=== PATIENT | male | born 1950 | race Caucasian/White ===

== ENCOUNTER 2018-11-06 06:27 | Day surgery (SDC) | payer OTHER, SELFPAY ==
[2018-08-31 17:53] VITALS: BMI 25.7
[2018-11-06 07:01] VITALS: BP 137/79; PULSE 55; RESP 16; TEMP 36.7; O2SAT 99; BMI 24.8
[2018-11-06] MEDS: Lactated Ringers 1,000 ML 100 ML IV (07:11)
--- NOTE | 2018-11-06 07:29 | HP.PCM_ITS ---
History of Present Illness Date of Admission: 11/06/18 The patient is a 68 year old M here for screening colonoscopy. Patient reports that his last colonoscopy was 10 to 11 years ago and was normal. He is not having any abdominal pain or blood in stool. He denies any family history of colon cancer. Past Medical/Surgical History - Planned Operation Planned Operative Procedure/s: CSCOPE OPEN ACCESS Date of Operative Procedure: 11/06/18 Permit Signed: No S.O.S: No Is This Patient Having a Total Joint: No - Previous Hospitalizations/Surgeries HX Hospitalizations: No HX of Surgeries: TONSILLECTOMY CHILD. CSCOPE Any Problems With Anesthesia: No You/Your Family Experience Fever (Hyperthermia) With Anes: No Cholinesterase deficiency: No - Cardiovascular Hx Chest Pain within Last 2 months: No Hx of Irregular Heartbeat and/or Afib: No Hx Heart Attack: No Hx Congestive Heart Failure: No Hx Rheumatic Fever: No Hx Hypertension: No Hx Internal Defibrillator: No Hx Pacemaker: No Hx Cardiac Catheterization: No Hx Cardiac Surgery/Stents/Etc.: No Hx Stress Test: No HX Edema: No Hx Pain in Legs when Walking/Leg Cramps: No - Respiratory Chronic Cough: No HX of Shortness of Breath: No Hoarseness: No Hx Chronic Obstructive Pulmonary Disease (COPD): No Hx Asthma: No Hx Emphysema: No Hx Sleep Apnea: No Hx Oxygen Use at Home: No Hx Respiratory Tract Infection/Cold (presently): No Do You Snore Loudly (louder than talking or can be heard): Yes Do You Often Feel Tired/ Fatigued/ Sleepy Dring Daytime?: No Has Anyone Observed You Stop Breathing During Sleep?: No Result (for STOP score): Negative Hx Smoking: No Smoking Status: Never smoker - Gastrointestinal Hx Gastroesophageal Reflux: No Hx Gastrointestinal Disorders: No Hx Gastrointestinal Bleed: No Hx Ulcer: No Hx Hiatal Hernia: No Difficulty Chewing/Swallowing: No Recent Onset of Swallowing Problems: No Special diet followed at home: No Hx Unplanned Weight Loss of 20#: No HX Unplanned Weight Gain of 20#: No - Neurological Hx Seizures: No HX Syncope/Blackout Spells/Unconsciousness: No Hx CVA/Stroke: No Hx Transient Ischemic Attacks (TIA): No Hx Multiple Sclerosis: No Hx Parkinson's Disease: No Hx Head/Neck Injury: No Hx Headaches: No Hx Back Injury/Pain: No Recent Onset of Speech Difficulty: No Restless Legs: No Does patient have nerve stimulator: No Patient instructed to have device shut off: No Rep notified?: No - Blood Disorder Hx Leukemia: No Bleeding Tendencies: No Hx Deep Vein Thrombosis: No Hx High Cholesterol: Yes - HAD BEEN ON MED Hx Hepatitis: No Hx Cirrhosis: No Hx Anemia: No Hx Blood Disorders: No - Genitourinary Hx Renal Disease: No - Musculoskeletal Hx Arthritis: No Hx Rheumatoid Arthritis: No Hx Gout: No Recent Onset of an Orthopedic Problem: No - Endocrine Hx Diabetes: No Thyroid Disease: No Hx Steroid Therapy: No - Psycho/Social Hx Substance Use: No Hx Alcohol Use: Yes - OCC Hx Anxiety: No Hx Depression: No Mental Illness: No Hx Dementia: No - Miscellaneous Hx Cancer: No Recent Exposure to Contagious Disease: No Active MRSA: No Hx of C-Diff: No Any Loose Teeth: No Allergies No Known Allergies Allergy (Unverified 11/06/18 07:01) - Discharge Is Pt Admitted From a Senior Care, or a Long Term: No Who Could Help: FAMILY After D/C, Where Do you Plan to Go: Return Home - From the PAT History Number of Risk Factors: 1 - Physical Exam General: Alert, Oriented x3 Neck: No JVD Lungs: Normal air movement Cardiovascular: Regular rate, Regular Rhythm Abdomen: Soft, Non Tender, Non-Distended Extremities: No clubbing Skin: No rashes Vital Signs Temp Pulse Resp BP Pulse Ox 98.0 F 55 L 16 137/79 H 99 11/06/18 07:01 11/06/18 07:01 11/06/18 07:01 11/06/18 07:01 11/06/18 07:01 Oxygen Delivery Method Room Air Weight: 178 lb 2.136 oz Body Mass Index (BMI) 24.8 Assessment/Plan All Active Problems (Last Reviewed 08/31/18 @ 17:41 by Siri Wang) Abrasion, ankle without infection (Acute) Sinusitis, acute (Acute) Bronchitis (Acute) 68-year-old male for screening colonoscopy I explained endoscopy in detail to the patient. I explained the risks including but not limited to stroke or heart attack with anesthesia, perforation of the GI tract, bleeding, infection. I explained that any of these could necessitate further emergency surgery. The patient understands and all questions were answered sufficiently. The patient wishes to proceed with procedure. Dixon Velasquez MD Pager: [facility] [address] [place] [address] [address] [place] [address] Office: Surgery Risks - Colonoscopy Risks Include but are not Limited To: Risks include but are not limited to: Bleeding, perforation requiring further surgery, inability to complete colonoscopy requiring barium enema.
[2018-11-06 07:56] VITALS: BP 137/79; BP 86/50; PULSE 59; RESP 16; TEMP 36.6; O2SAT 96
--- NOTE | 2018-11-06 07:56 | OP.ENDO_ITS ---
11/06/2018 Derik Ramirez [address] [place] [address] Re : Colonoscopy procedure for [place] Dear Dr. Ramirez This procedure was performed on Tuesday, November 06, 2018. My impressions and recommendations are as follows: Impressions : - Diverticulosis in the sigmoid colon. - The examination was otherwise normal on direct and retroflexion views. - No specimens collected. Recommendations : - Discharge patient to home. - Resume previous diet. - Continue present medications. - Repeat colonoscopy in 10 years for screening purposes. My findings are described in the full procedure note, which is enclosed. If I can be of further assistance, please feel free to contact me at Doctor phone number(s): , Work: . Sincerely, Dixon Velasquez MD 11/06/2018 7:56:00 AM This report has been signed electronically.
[2018-11-06 08:00] VITALS: BP 137/79; BP 86/54; PULSE 59; RESP 16; O2SAT 97
[2018-11-06 08:05] VITALS: BP 137/79; BP 94/68; PULSE 64; RESP 16; O2SAT 99
[2018-11-06 08:09] VITALS: BP 114/69; BP 137/79; PULSE 63; RESP 16; TEMP 36.4; O2SAT 100
[2018-11-06 08:15] VITALS: BP 137/79
== END 2018-11-06 08:48 | disposition home or self-care (01) ==
LOC: EN 06:29 → AC 06:29
PROVIDERS: Family Provider Family Medicine; PCP Family Medicine; Referring Provider Family Medicine; Visit Provider Surgery
PROC: 0DJD8ZZ Inspection of Lower Intestinal Tract, Via Natural or Artificial Opening Endoscopic (ICD-10-PCS; CPT 45378; principal; 2018-11-06 07:25)
DX: Z12.11 Encounter for screening for malignant neoplasm of colon (principal); K57.30 Diverticulosis of large intestine without perforation or abscess without bleeding; E78.00 Pure hypercholesterolemia, unspecified
CPT/HCPCS: 45378; J7120

== ENCOUNTER → 2019-09-23 12:30 | Outpatient (CLI) | payer OTHER, SELFPAY ==
[2019-09-23 15:07] LABS: Hematocrit 48.8 % (40-54); Hemoglobin 15.8 g/dL (13.0-16.5); Mean Corp Hgb Conc 32.4 g/dL (32-36); Mean Corpuscular Hgb 30.8 pg (27.0-32.0); Mean Corpuscular Volume 95.1 fL (80-94); Mean Platelet Vol. 10.3 fl (6.2-12.0); Platelet Count 211 K/mm3 (150-450); RBC Distribution Width CV 13.2 % (11.6-14.6); RBC Distribution Width SD 46.7 fl (35.1-43.9); Red Blood Count 5.13 M/mm3 (4.6-6.2); White Blood Count 5.7 K/mm3 (4.4-11.0)
[2019-09-23 15:12] LABS: BNP,B-Type NATRIURETIC PEPTIDE 24.8 pg/mL (0-100)
[2019-09-23 15:32] LABS: Anion Gap 6 (5-15); BUN 25 mg/dL (7-18); BUN/Creat Ratio 30.5 RATIO (10-20); Calcium,Total 8.7 mg/dL (8.5-10.1); Chloride 104 mmol/L (98-107); Creatinine, Serum 0.82 mg/dL (0.70-1.30); EST Glomerular Filtration Rate 99 mL/min (>60); Est Glom Filt Rate - Afr Amer 120 mL/min (>60); Glucose 77 mg/dL (74-106); Potassium 3.7 mmol/L (3.5-5.1); Sodium Level 138 mmol/L (136-145); Thyroid Stim Hormone (TSH) 3.05 uIU/mL (0.358-3.74)
== END ==
PROVIDERS: PCP Family Medicine; Referring Provider Family Medicine; Visit Provider Family Medicine
DX: R07.9 Chest pain, unspecified (principal)
CPT/HCPCS: 36415; 80048; 83880; 84443; 85027

== ENCOUNTER 2019-09-27 13:12 | Inpatient (IN) | payer OTHER, SELFPAY ==
[2019-09-27] VITALS (18 sets, daily range): BP systolic 112–175; BP diastolic 88–121; PULSE 57–105; RESP 14–28; TEMP 35.8–37.1; O2SAT 90–98; BMI 23.8; BMI 23.3
--- NOTE | 2019-09-27 13:16 | EKG12_ITS ---
Test Reason : Blood Pressure : / mmHG Vent. Rate : 111 BPM Atrial Rate : 111 BPM P-R Int : 156 ms QRS Dur : 084 ms QT Int : 304 ms P-R-T Axes : 075 058 081 degrees QTc Int : 413 ms Sinus tachycardia Possible Left atrial enlargement Low voltage QRS Septal infarct , age undetermined Marked ST abnormality, possible inferior subendocardial injury Abnormal ECG Confirmed by SHERRELL WATERS, MAEVE ([id number]), acquisitions editor AGATHA SKY ([id number]) on 09/30/2019 9:46:51 AM Referred By: MIGUEL Confirmed By:MAEVE WYNNE MD
--- NOTE | 2019-09-27 13:31 | EKG12_ITS ---
Test Reason : Blood Pressure : / mmHG Vent. Rate : 101 BPM Atrial Rate : 101 BPM P-R Int : 148 ms QRS Dur : 076 ms QT Int : 352 ms P-R-T Axes : 074 032 077 degrees QTc Int : 456 ms Sinus tachycardia Possible Left atrial enlargement Low voltage QRS Septal infarct , age undetermined ST-Segment Abnormality; Possible Inferior Subendocardial Injury Abnormal ECG Confirmed by HARDIK WATERS, MONIQUE ([id number]), department editor ARNULFO WAGNER ([id number]) on 09/29/2019 1:12:00 PM Referred By: ANN MARIE Confirmed By:MONIQUE DYE MD
--- NOTE | 2019-09-27 13:31 | RAD_ITS ---
STUDY: X-RAY CHEST REASON FOR EXAM: Male, 69 years old. CHEST PAIN MID CHEST, NO PRIOR HX CHEST COMPAINTS TECHNIQUE: Single AP portable view of the chest. COMPARISON: None. FINDINGS: EKG electrodes are seen. Hyperinflation. Mild increased interstitial markings at the lung bases. This may represent a mild degree of interstitial edema with vascular congestion. There is no demonstrated pleural abnormality. Normal size heart. Normal mediastinum and remi. Normal visualized pulmonary arteries. Normal visualized aortic arch and descending thoracic aorta. There are diffuse degenerative changes of the visualized thoracic spine. Dextroscoliosis. Normal visualized ribs, clavicles, and shoulders. There is no demonstrated abnormality of the visualized soft tissue structures of the upper abdomen. RAD/Chest 1 View (Portable) IMPRESSION: Hyperinflation. Mild increased interstitial markings at the lung bases superimposed on mild vascular congestion suggestive of mild CHF. Electronically Signed: Ever Ervin, at 14:06 EDT , Service support ,
--- NOTE | 2019-09-27 13:33 | ED.DCSUM_ITS ---
History of Present Illness Chief Complaint: Chest Pain Narrative: 69-year-old male with no significant past medical history presents with concern for chest pain. States that it began 2 weeks ago. Was retrosternal and nonradiating on exertion. Chest pain-free at rest. Patient has now had constant chest pain since this morning. Describes it as retrosternal and aching. Does admit to some mild shortness of breath. Nausea with vomiting. Mild diaphoresis. No history of DVT or pulmonary embolism. Patient is a cur rent smoker. Past Medical History - Allergies and Home Meds Allergies/Adverse Reactions: Allergies No Known Allergies Allergy (Unverified 11/06/18 07:01) Prior records reviewed: Yes Past Medical History: None Surgical History: no surgical history Lives: Spouse/ Significant Other Smoking Status: Never smoker Review of Systems General: Reports: Sweats. Denies: Chills, Fever Eyes: Denies: Visual changes - bilaterally, Diplopia ENT: Denies: Rhinorrhea, Sore throat Cardiovascular: Reports: Chest pain. Denies: Palpitations Respiratory: Reports: Dyspnea. Denies: Cough, Dyspnea on exertion Gastrointestinal: Reports: Nausea, Vomiting. Denies: Abdominal pain, Diarrhea, Melena, Hematochezia Genitourinary: Denies: Dysuria, Hematuria, Frequency Musculoskeletal: Denies: Back pain, Extremity Pain Skin: Denies: Rash, Wounds Neurological: Denies: Headache, Weakness, Numbness Physical Exam Vital Signs/Narrative: Vital Signs Temp Pulse Resp BP 09/27/19 13:13 98.1 F 104 H 20 H 163/111 H Inital Vital Signs reviewed: Yes General: Well nourished, Well developed, No Acute Distress Head: Normocephalic, Atraumatic Eyes: Perrl, EOMI ENT: Moist mucous membranes, No rhinorrhea Neck: Supple, Nontender Cardiovascular: Regular rate, Regular rhythm, No murmurs Respiratory: No distress, CTA bilaterally, Chest nontender Abdomen: Soft, Nontender, Nondistended, Normal bowel sounds Back: Nontender, Normal Inspection Extremities: Nontender, No edema Skin: Normal color, No rash Neurological: Alert, Oriented x3, Cranial nerves II-XII grossly intact, Normal Strength, Normal Sensation Psychological: Normal affect, Normal Mood Diagnostic/Tx/Re-eval Chest X-Ray - ED: 1 View, Read by ED Physician, - - Vascular congestion. Clinical Impression(s) from Imaging Studies Chest X-Ray 09/27/19 13:31 IMPRESSION: Hyperinflation. Mild increased interstitial markings at the lung bases superimposed on mild vascular congestion suggestive of mild CHF. Electronically Signed: Ever Ervin, at 14:06 EDT , Service support , Laboratory Data 09/27/19 09/27/19 13:20 13:20 WBC 9.9 RBC 5.64 Hgb 17.4 H Hct 52.9 MCV 93.8 MCH 30.9 MCHC 32.9 RDW Std Deviation 44.2 H RDW Coeff of Sean 13.0 Plt Count 238 MPV 10.2 Immature Gran % (Auto) 0.300 Neut % (Auto) 86.5 H Lymph % (Auto) 9.4 L [place] % (Auto) 3.5 Eos % (Auto) 0.0 Baso % (Auto) 0.3 Absolute Neuts (auto) 8.6 H Absolute Lymphs (auto) 0.93 Nucleated RBC % 0 Sodium 137 Potassium 3.6 Chloride 98 Carbon Dioxide 30.0 Anion Gap 9 BUN 17 Creatinine 0.97 Estim Creat Clear Calc 74.21 Est GFR (MDRD) Af Amer 99 Est GFR (MDRD) Non-Af 82 BUN/Creatinine Ratio 17.5 Glucose 154 H Calcium 9.0 Troponin I 0.938 H* - Rhythm Strip Rhythm Strip: Sinus Tach Rate: 111 Ectopy: None - EKG Initial EKG Interpretation: Sinus Tachycardia - EKG done at 1316: Sinus tachycardia at [address] depression with slight elevation in V1 and V2. No criteria for STEMI at this time. Concern for ischemia. Change from previous on 05/03/2009. Follow-up EKG Interpretation: Sinus Tachycardia - EKG done at 1337: Sinus tachycardia at [address] depression diffusely. Slight elevation in aVL which does not meet criteria for STEMI at this time. - Medical Decision Making Patient appears well and nontoxic. Hypertensive and tachycardic upon arrival. Initial EKG is concerning for ischemia. Given the patient's history consistent with ACS interventional cardiology was consulted. EKG was examined by data report analyst Dr. Fraser who examined the patient at the bedside. Repeat EKG unchanged and not worsened. Patient was ordered aspirin but had already taken full dose at home. Was given nitroglycerin for blood pressure control as well as to control the patient's pain. Dr. Fraser will take patient to cardiac catheterization lab with concern for ACS. Patient agreeable and stable at time of admission to hospitalist. - Critical Care Time Critical care time (excluding procedures): 30-74 minutes, Discussing w/Patient &/or Family/Platform Material Handler Manager, Discussing w/Consultants, Arranging Admission or Transfer, Performing Direct Patient Care at Bedside ED Disposition - Plan for ED Patient: Disposition: Acute Care Hospital [facility] Diagnosis: Acute coronary syndrome, Elevated troponin, Elevated blood pressure reading
[2019-09-27 13:44] LABS: Absolute Lymphocyte Count 0.93 X10^3/uL (0.83-4.51); Absolute Neutrophil Count 8.6 X10^3/uL (2.0-7.7); Basophil# 0.03 X10^3/uL; Basophil% 0.3 % (0-1); Hematocrit 52.9 % (40-54); Hemoglobin 17.4 g/dL (13.0-16.5); Lymphocyte # 0.93 X10^3/ul (4.0); Lymphocyte % 9.4 % (19-41); Mean Corp Hgb Conc 32.9 g/dL (32-36); Mean Corpuscular Hgb 30.9 pg (27.0-32.0); Mean Corpuscular Volume 93.8 fL (80-94); Mean Platelet Vol. 10.2 fl (6.2-12.0); Monocyte# 0.35 X10^3/uL; Monocyte% 3.5 % (0-10); NRBC Flagged by Analyzer 0 % (0-5); Neutrophil # 8.59 X10^3/uL (2.7-7.7); Neutrophil % 86.5 % (47-70); POSITIVE MORPHOLOGY YES; Platelet Count 238 K/mm3 (150-450); RBC Distribution Width SD 44.2 fl (35.1-43.9); Red Blood Count 5.64 M/mm3 (4.6-6.2); White Blood Count 9.9 K/mm3 (4.4-11.0)
[2019-09-27 13:49] LABS: Differential Indicated SCAN CRITERIA MET
[2019-09-27 14:00] LABS: Anion Gap 9 (5-15); BUN 17 mg/dL (7-18); BUN/Creat Ratio 17.5 RATIO (10-20); Chloride 98 mmol/L (98-107); Creatinine, Serum 0.97 mg/dL (0.70-1.30); EST Glomerular Filtration Rate 82 mL/min (>60); Est Glom Filt Rate - Afr Amer 99 mL/min (>60); Estimated Creatinine Clearance 74.21 ml/min; Glucose 154 mg/dL (74-106); Potassium 3.6 mmol/L (3.5-5.1); Sodium Level 137 mmol/L (136-145)
[2019-09-27] MEDS: Nitroglycerin SL (ED/IMG/CATH) 0.4 MG TABLET SUBLINGUAL (14:13)
--- NOTE | 2019-09-27 14:13 | NURSING ---
WARP TYING MACHINE TENDER [facility]
--- NOTE | 2019-09-27 14:19 | HP.PCM_ITS ---
History of Present Illness Date of Admission: 09/27/19 Chief Complaint: chest pain The patient is a 69 year old M with no significant PMH who was admitted via the ED on 09/27/2019 with a complaint of chest pain which had been going on for 2 weeks, and worsened on day before presentation. Chest pain was retrosternal, pressure-like, nonradiating and aggravated by exertion and relieved by rest. He had associated vomiting and mild shortness of breath but denied any increased sweating or palpitations or dizziness. He has not had such symptoms before and denies any cardiac history and family history of cardiac disease. Since pain was getting worse today, he decided to come into the ED. Admission in the ED, vitals were significant for blood pressure of 175/121, but otherwise within normal limits. Chemistry was unremarkable but initial troponin was 0.938. CBC showed hemoglobin of 17.4 with WBC of 9.9 and platelets of 238. EKG showed PVCs but no acute ST changes. Chest x-ray showed hyperinflation with mild increased interstitial markings at the lung bases superimposed on mild vascular congestion suggestive of mild CHF. He has been admitted to be managed for non-STEMI. Cardiology was consulted and reviewed patient in ED and decided that based on his symptoms with elevated troponin, he would be sent for urgent cardiac cath. [] Past Medical History Medical History: Medical History (Last Reviewed 08/31/18 @ 17:41 by Siri Wang) Hyperlipidemia E78.5 Left inguinal hernia K40.90 Allergies No Known Allergies Allergy (Unverified 11/06/18 07:01) Home Medications: Ambulatory Orders Medication Instructions Recorded aspirin 81 mg tablet,delayed 81 mg PO DAILY 05/08/17 release cholecalciferol (vitamin D3) 25 1,000 unit PO DAILY 05/08/17 mcg (1,000 unit) capsule multivitamin 1 tab PO QAM 05/08/17 Surgical History: Surgical History (Last Reviewed 08/31/18 @ 17:41 by Siri Wang) History of colonoscopy Z98.890 History of tonsillectomy and adenoidectomy Z98.890 Surgical History: no surgical history Lives: Spouse/ Significant Other Smoking Status: Never smoker Review of Systems Constitutional: Denies: Chills, Fever, Malaise, Weakness, Weight Change HEENT: Denies: Head Aches, Sinus Congestion, Sinus Drainage Cardiovascular: Reports: Chest Pain, Chest Tightness Respiratory: Denies: Cough, Shortness of Breath, Shortness of breath at rest, Shortness of breath upon exertion, Sputum production Gastrointestinal: Denies: Abdominal Pain, Nausea, Vomiting Genitourinary: Denies: Dysuria Musculoskeletal: Denies: Joint Pain, Joint Tenderness Skin: Denies: Rash, Wounds Neurological: Denies: Numbness, Tingling, Focal weakness Psychiatric: Denies: Anxiety, Depression, Homicidal Ideations, Suicidal Ideations Hematologic/ Lymphatic: Denies: Easy Bruising, Easy Bleeding VTE Information - Inpt Only VTE Present on Admission: No VTE Pharm Prophylaxis ordered?: Yes - Physical Exam Vitals/I&O's: Vital Signs Temp Pulse Resp BP Pulse Ox 98.5 F 100 25 H 175/121 H 97 09/27/19 14:13 09/27/19 14:13 09/27/19 14:13 09/27/19 14:13 09/27/19 14:13 Oxygen Delivery Method Room Air Weight: 166 lb 3.657 oz Body Mass Index (BMI) 23.8 General: Alert, Oriented x3, Cooperative, No apparent distress HEENT: Atraumatic, PERRLA, EOMI, Normocephalic Oral: Moist Mucosa Neck: Supple, No JVD, Negative Carotid Bruits Lungs: Clear to auscultation, Normal air movement, No rhonchi, No wheeze, No rales Cardiovascular: Regular rate, Regular Rhythm, Normal S1, Normal S2, No murmurs Abdomen: Bowel Sounds Present, Soft, Non Tender, Non-Distended, No Hepato- splenomegaly Extremities: No clubbing, No cyanosis, No edema, Capillary Refill Less than 3 Seconds Skin: No rashes, No breakdown Musculoskeletal: No Tenderness to Palpation of Joints or Extremities Lymphatic: No Cervical, Supraclavicular, or Inguinal Adenopathy Neurological: Cranial nerves II-XII grossly intact, Neuro grossly intact, Motor Exam 5/5 strength throughout Psych/Mental Status: Normal Affect, Appropriate, Alert and oriented to time, place, person, mood and affect Laboratory Results 09/27/19 13:20: WBC 9.9, RBC 5.64, Hgb 17.4 H, Hct 52.9, MCV 93.8, MCH 30.9, MCHC 32.9, RDW Std Deviation 44.2 H, RDW Coeff of Sean 13.0, Plt Count 238, MPV 10.2, Immature Gran % (Auto) 0.300, Neut % (Auto) 86.5 H, Lymph % (Auto) 9.4 L, [place] % (Auto) 3.5, Eos % (Auto) 0.0, Baso % (Auto) 0.3, Absolute Neuts (auto) 8.6 H, Absolute Lymphs (auto) 0.93, Nucleated RBC % 0 09/27/19 13:20: Sodium 137, Potassium 3.6, Chloride 98, Carbon Dioxide 30.0, Anion Gap 9, BUN 17, Creatinine 0.97, Estim Creat Clear Calc 74.21, Est GFR (MDRD) Af Amer 99, Est GFR (MDRD) Non-Af 82, BUN/Creatinine Ratio 17.5, Glucose 154 H, Calcium 9.0, Troponin I 0.938 H* Diagnostic Data Chest X-Ray 09/27/19 13:31 IMPRESSION: Hyperinflation. Mild increased interstitial markings at the lung bases superimposed on mild vascular congestion suggestive of mild CHF. Electronically Signed: Ever Arcadio, at 14:06 EDT , Service support , Current Medications Nitroglycerin (Nitrostat) 0.4 mg SUBLINGUAL Q5M PRN PRN Reason: Chest pain Last Admin: 09/27/19 14:13 Dose: 0.4 mg Documented by: Assessment/Plan All Active Problems (Last Reviewed 08/31/18 @ 17:41 by Siri Wang) Abrasion, ankle without infection (Acute) Sinusitis, acute (Acute) Bronchitis (Acute) 69-year-old admitted with a complaint of chest pain. 1. Nonstemi * Admit to PCU with telemetry. * Initial troponin was 0.938 though EKG showed no acute ST changes. * Chest x-ray showed hyperinflation with changes suggestive of mild CHF. * Give p.o. aspirin 81 mg daily and sublingual nitroglycerin as needed. * Cardiology consulted by ED and reviewed patient. Patient to be sent for urgent cardiac cath. * Order 2D echo to be done after cardiac cath. * 2. Elevated blood pressure * No known diagnosis of hypertension. Blood pressure was 175/121 and patient thinks that this is because he is stressed out from going for the urgent cath. * IV hydralazine PRN. Will monitor blood pressure and if remains elevated, will consider starting oral blood pressure medications. * DVT prophylaxis: lovenox CODE STATUS: Full code * Patient counseled extensively about different types of CODE STATUS including full code, DNR CCA and DNR CCA. Patient elects to be full code. * Total [id number] time 16 minutes. Inpatient E&M: 39111 Init Hosp L3 Procedures: 19926 Advncd Care Plan 30 Min
--- NOTE | 2019-09-27 14:19 | ED.RN ---
environmental laboratory technician staff at bedside to take patient straight to shipyard laborer. report given. states they will prep in lab.
--- NOTE | 2019-09-27 16:58 | CL.D_ITS ---
Patient Name: DELFINA COOL Study Date: 09/27/2019 Performing: Tiburcio Suarez MD Ht: 70 inches 178 cm : 1950 Wt: 165.6 lbs 75 kg Age: 69 Gender: male BSA: 1.93 PROCEDURE(S) PERFORMED TO51-CJE/COR/LV CLINICAL PROFILE AND INDICATIONS Indications: ACS > 24 hrs Heart Failure: None Stress/Imaging Stress/Image Study Performed: No CONCLUSIONS Severe two-vessel disease involving a totally occluded left anterior descending artery with right to left collaterals, severe disease involving the proximal first obtuse marginal branch, severe disease involving the mid to left circumflex artery, mild diffuse disease involving the right coronary artery . Severe left ventricular systolic dysfunction noted with anterior apical akinesis. RECOMMENDATIONS Surgery consult for coronary revascularization DESCRIPTION OF PROCEDURE The patient arrived to the procedure lab. The risks and benefits of the procedure as well as a full d escription of our services here and current unavailability of surgical backup were fully explained to the patient and/or their significant other prior to the catheterization. The Timeout was completed, verifying the correct patient and procedure. The patient's procedural site was prepped and draped in the usual fashion. Local anesthetic was given subcutaneously to right radial region with Lidocaine 2% . Using a modified Seldinger technique, arterial access was obtained via the right radial artery, a 6 Fr sheath was inserted. Left Coronary Artery selective angiography was performed in multiple views u sing a 5 Fr. 4.0 Fallon catheter. Right Coronary Artery selective angiography was then performed in mu ltiple views using a 5 Fr. 4.0 Fallon catheter. Left Ventriculography was performed in VEGA projection using a 5 Fr. Pigtail catheter. LV to AO pullback pressures were then recorded. CORONARY ANGIOGRAPHY DOMINANCE: Right Dominant LEFT HEART ASSESSMENT Left Ventricular Ejection Fraction: by LV Gram 30 % Anterior Akinesis. Apical Akinesis Cardiomyopathy: Dilated ischemic LEFT MAIN: Angiographically normal LEFT ANTERIOR DESCENDING ARTERY: PROX LAD: is occluded CIRCUMFLEX ARTERY: MID CIRC: 80 % Stenosis OM 1: Proximal - long 80 pct RIGHT CORONARY ARTERY: PROX RCA: Mild luminal irregularities less than 30% COLLATERAL FLOW: Collateral flow from Right to Left COMPLICATIONS No Complications PROCEDURE MEDICATIONS Versed 1 mg IV Brilinta 180 mg PO @ 09/27/2019 14:24:19 Zofran 4 mg IV 09/27/2019 14:24:59 IV Bolus: .9 NaCl 200 ml total 09/27/2019 15:11:50 SUMMARY OF HEMODYNAMIC DATA Time AIR REST ECG 14:29:21 AO 116/78 (96) SA 14:44:13 LV 112/21, 27 14:53:05 LV 105/21, 26 14:53:12 LV 125/11, 32 14:54:04 LV 125/9, 33 14:54:10 LVp 129/8, 34 14:54:17 AOp 120/65 (87) 14:54:22 Signed By Tiburcio Suarez MD On 09/27/2019 4:57:44 PM Tiburcio Suarez MD
--- NOTE | 2019-09-27 17:17 | CON.PCM_ITS ---
Reason for Consult Date of Consultation: 09/27/19 Reason for Consultation: Chest pain History of Present Illness: The patient is a 69 year old M with no significant past medical history who was admitted today with complaints of chest pain which have been going on for the last 2 weeks. He said on the day before presentation it apparently worsened. She describes it as retrosternal, pressure-like, nonradiating and exacerbated by exertion and relieved by rest. He had some associated vomiting and shortness of breath but he had no dizziness. Because the pain was getting worse today he decided to present to the emergency room. In the emergency room he was noted to be rather hypertensive and in some pain. His EKG initially demonstrated evidence of poor R wave progression and nonspecific ST changes and premature ventricular complexes. He was also noted to have an abnormal cardiac enzyme. Due to the mild continued chest discomfort it was decided to take him to the cardiac catheterization lab for he was further evaluated. [] Past Medical History Allergies/Adverse Reactions: Allergies No Known Allergies Allergy (Unverified 11/06/18 07:01) Home Medications: Ambulatory Orders Medication Instructions Recorded multivitamin 1 tab PO QAM 05/08/17 Aspirin [Aspirin, Baby] 81 mg PO DAILY@0800 09/27/19 Surgical History: no surgical history Lives: Spouse/ Significant Other Smoking Status: Never smoker Alcohol: None Drugs: None Review of Systems - Review of Systems General: Denies: Fever, Night Sweats, Fatigue HEENT: Denies: Vision Change Cardiovascular: Reports: Chest Discomfort, Chest Discomfort at Rest, Chest Discomfort with Exertion. Denies: Shortness of Breath, Orthopnea, PND, Peripheral Edema, Palpitations, Lightheadedness, Dizziness, Near Syncope, Syncope Respiratory: Denies: Cough, Sputum Production, Hemoptysis Gastrointestinal: Denies: Hematemesis, Hematochezia, Melena Genitourinary: Denies: Dysuria, Hematuria Muscoloskeletal: Denies: Myalgias Skin: Denies: Rash Neurological: Denies: Dizziness Psychiatric: Denies: Anxiety Endocrine: Denies: Heat Intolerance Hematologic/ Lymphatic: Denies: Anemia Subjectve: Patient seen and evaluated and appears to be doing well stable but diaphoretic Objective: Vital Signs Temp Pulse Resp BP Pulse Ox 96.5 F L 101 H 18 140/88 H 92 09/27/19 16:05 09/27/19 16:05 09/27/19 16:05 09/27/19 16:05 09/27/19 16:05 Oxygen Flow Rate (L/min) 4 Oxygen Delivery Method Nasal Cannula Weight: 167 lb 5 oz Body Mass Index (BMI) 23.3 General: Awake, Alert, Oriented x 3 HEENT: PERRL, EOMI, Sclera Non Icteric Neck: Supple, Good ROM, No Lymph Node Enlargement Lungs: Clear to auscultation Cardiovascular: Regular Rhythm, Normal S1, Normal S2, No Murmurs, No Rubs, No Gallops Vascular: No Carotid Bruits, Normal Femoral Pulses, Normal Radial Pulses, Normal Dorsalis Pedal Pulse, Normal Posterior Tibial Pulses Abdomen: Bowel Sounds Present, Soft, Non Tender, No HSM, No Organomegaly Extremities: No Cyanosis, No Clubbing, No edema Musculoskeletal: No Erythema Skin: No Rashes Lymphatic: No Lymph Node Enlargement Neurological: No Focal Motor or Sensory Deficit Psych/Mental Status: Appropriate 09/27/19 13:20: WBC 9.9, RBC 5.64, Hgb 17.4 H, Hct 52.9, MCV 93.8, MCH 30.9, MCHC 32.9, Plt Count 238, MPV 10.2, Immature Gran % (Auto) 0.300, Neut % (Auto) 86.5 H, Lymph % (Auto) 9.4 L, [place] % (Auto) 3.5, Eos % (Auto) 0.0, Baso % (Auto) 0.3, Absolute Neuts (auto) 8.6 H, Nucleated RBC % 0 09/27/19 13:20: Sodium 137, Potassium 3.6, Chloride 98, Carbon Dioxide 30.0, Anion Gap 9, BUN 17, Creatinine 0.97, Est GFR (MDRD) Af Amer 99, Est GFR (MDRD) Non-Af 82, BUN/Creatinine Ratio 17.5, Glucose 154 H, Calcium 9.0, Troponin I 0.938 H* Rhythm: EKG: Sinus tachycardia with a rate of 102 bpm with poor R wave progression, occasional premature ventricular complexes ECHO: Stress Test: Cardiac Cath: PCI: CT Surgery: Holter monitor: EPS: PPM: CXR: Chest CT Scan: Assessment/Plan 1. Non-ST elevation myocardial infarction * Patient presents with chest discomfort over the previous 2 weeks with troponin criteria for non-ST elevation myocardial infarction. 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 * Severe left ventricular systolic dysfunction with anterior apical and inferior apical and mid anterior akinesis. * * Based on the above angiographic findings recommendation would be for him to consider coronary artery bypass surgery. Arrangements were made to transfer him to a tertiary care facility. The above has been discussed with the patient and his and they understand and agree to proceed.
[2019-09-27] MEDS: Metoprolol Tartrate 25 MG Tablet PO (18:23)
[2019-09-27] MEDS: Morphine 2 MG/ML Syringe 1 MG IV (18:53)
--- NOTE | 2019-09-27 20:02 | DS.PCM_ITS ---
Discharge Date and Diagnosis - Problem List Patient Problems: Active and Suspected Problems (Last Reviewed 08/31/18 @ 17:41 by Siri Wang) Acute coronary syndrome (Acute) Elevated troponin (Acute) Elevated blood pressure reading (Acute) Date of Admission: 09/27/19 Date of Discharge: 09/27/19 - Primary Discharge Diagnosis Acute Problems: Active Problems (Last Reviewed 08/31/18 @ 17:41 by Siri Wang) Acute coronary syndrome (Acute) Elevated troponin (Acute) Elevated blood pressure reading (Acute) Hospital Course and Treatment Imaging Results: 09/27/19 13:31 Chest 1 View (Portable) [RAD] Stat cardiology- Dr Suarez Operations: None Procedures: Cardiac catheterization Summary of Care Provided: The patient is a 69 year old M with no significant PMH who was admitted via the ED on 09/27/2019 with a complaint of chest pain which had been going on for 2 weeks, and worsened on day before presentation. Chest pain was retrosternal, pressure-like, nonradiating and aggravated by exertion and relieved by rest. He had associated vomiting and mild shortness of breath but denied any increased sweating or palpitations or dizziness. He has not had such symptoms before and denies any cardiac history and family history of cardiac disease. Since pain was getting worse today, he decided to come into the ED. Admission in the ED, vitals were significant for blood pressure of 175/121, but otherwise within normal limits. Chemistry was unremarkable but initial troponin was 0.938. CBC showed hemoglobin of 17.4 with WBC of 9.9 and platelets of 238. EKG showed PVCs but no acute ST changes. Chest x-ray showed hyperinflation with mild increased interstitial markings at the lung bases superimposed on mild vascular congestion suggestive of mild CHF. He has been admitted to be managed for non- STEMI. Cardiology was consulted and reviewed patient in ED and decided that based on his symptoms with elevated troponin, he would be sent for urgent cardiac cath. Patient had cardiac cath which showed severe two-vessel disease involving a totally occluded left anterior descending artery with right to left collaterals, severe disease involving the proximal first obtuse marginal branch and severe disease involving the mid left circumflex artery with mild diffuse disease involving the right coronary artery as well as severe left ventricular systolic dysfunction with EF of 30% and anterior apical akinesis. Based on cardiac cath findings, decision was made to transfer patient to tertiary facility for surgical evaluation. Seen and examined. He had no complaints and review of symptoms otherwise negative. Labs and vitals reviewed. Home medication reviewed and reconciled. O/E: Vital Signs Temp Pulse Resp BP Pulse Ox 96.5 F L 98 24 H 147/98 H 91 09/27/19 16:05 09/27/19 19:00 09/27/19 19:00 09/27/19 19:00 09/27/19 19:00 General: Alert, Oriented x3, Cooperative, No apparent distress HEENT: Atraumatic, PERRLA, EOMI, Normocephalic Oral: Moist Mucosa Neck: Supple, No JVD, Negative Carotid Bruits Lungs: Clear to auscultation, Normal air movement, No rhonchi, No wheeze, No rales Cardiovascular: Regular rate, Regular Rhythm, Normal S1, Normal S2, No murmurs Abdomen: Bowel Sounds Present, Soft, Non Tender, Non-Distended, No Hepato-sple nomegaly Extremities: No clubbing, No cyanosis, No edema, Capillary Refill Less than 3 Seconds Skin: No rashes, No breakdown Musculoskeletal: No Tenderness to Palpation of Joints or Extremities Lymphatic: No Cervical, Supraclavicular, or Inguinal Adenopathy Neurological: Cranial nerves II-XII grossly intact, Neuro grossly intact, Motor Exam 5/5 strength throughout Psych/Mental Status: Normal Affect, Appropriate, Alert and oriented to time, place, person, mood and affect Plan is for transfer to [facility] for evaluation by cardiothoracic surgeon. Patient Problems: Active and Suspected Problems (Last Reviewed 08/31/18 @ 17:41 by Siri Wang) Acute coronary syndrome (Acute) Elevated troponin (Acute) Elevated blood pressure reading (Acute) - Physical Exam Vitals/I&O's: Vital Signs Temp Pulse Resp BP Pulse Ox 96.5 F L 98 24 H 147/98 H 91 09/27/19 16:05 09/27/19 19:00 09/27/19 19:00 09/27/19 19:00 09/27/19 19:00 Oxygen Flow Rate (L/min) 4 Oxygen Delivery Method Nasal Cannula Weight: 167 lb 5 oz Body Mass Index (BMI) 23.3 Intake and Output for Last 24 Hours 09/25/19 09/26/19 09/27/19 23:59 23:59 23:59 Output Total 250 / 250 Balance -250 / -250 Laboratory Results 09/27/19 13:20: WBC 9.9, RBC 5.64, Hgb 17.4 H, Hct 52.9, MCV 93.8, MCH 30.9, MCHC 32.9, RDW Std Deviation 44.2 H, RDW Coeff of Sean 13.0, Plt Count 238, MPV 10.2, Immature Gran % (Auto) 0.300, Neut % (Auto) 86.5 H, Lymph % (Auto) 9.4 L, [place] % (Auto) 3.5, Eos % (Auto) 0.0, Baso % (Auto) 0.3, Absolute Neuts (auto) 8.6 H, Absolute Lymphs (auto) 0.93, Nucleated RBC % 0 09/27/19 13:20: Sodium 137, Potassium 3.6, Chloride 98, Carbon Dioxide 30.0, Anion Gap 9, BUN 17, Creatinine 0.97, Estim Creat Clear Calc 74.21, Est GFR (MDRD) Af Amer 99, Est GFR (MDRD) Non-Af 82, BUN/Creatinine Ratio 17.5, Glucose 154 H, Calcium 9.0, Troponin I 0.938 H* Current Medications Heparin Sodium (Beef Lung) (Heparin 500 Unit/5 Ml (100/Ml)) 500 unit IV UD PRN PRN Reason: HEPARIN FLUSH Labetalol HCl (Trandate) 5 mg IV X1 PRN PRN Reason: SBP > 160 prior to sheath pull Stop: 09/29/19 15:31 Nitroglycerin (Nitrostat) 0.4 mg SUBLINGUAL Q5M PRN PRN Reason: Chest pain Last Admin: 09/27/19 14:13 Dose: 0.4 mg Documented by: Sodium Chloride () 10 - 40 ml IV UD PRN PRN Reason: SALINE FLUSH Discharge Diet: Low fat/ Low Cholesterol Discharge Activity: Return to Normal Activity Weight Bearing Status: Weight bearing as tolerated Home Medications: Medications to take at Discharge multivitamin 1 tab PO QAM 05/08/17 Aspirin [Aspirin, Baby] 81 mg PO DAILY@0800 09/27/19 Primary Care Physician: Antoni Rivera MD [STAFF PHYSICIAN] - Please follow up with your Primary Care Physician in: 1-2 weeks Disposition: Acute care Hospital Minutes spent on discharge:: 45 Patient Condition:: Fair Medical Necessity - Tobacco Use Smoking Status: Never smoker Meaningful Use Info Meaningful Use Diagnoses (Choose all that apply): AMI - AMI/Post PCI/Angioplasty Aspirin given w/in 24hrs of arrival?: Yes ASA at discharge?: Yes Antiplatelet Therapy at Discharge:: Yes Statins at discharge?: Yes Miles/ARB at discharge?: Yes Beta Josh at discharge?: Yes Done w/ Acute [place] measure.: Yes OBSV E&M: [id number] Observ/hosp same date L3
[2019-09-27] MEDS: Nitroglycerin Infusion 250 ML 3 MG CONT INF (20:59)
[2019-09-27] MEDS: Ondansetron 4 MG/2 ML Vial IV (21:30)
--- NOTE | 2019-09-27 21:42 | NURSING ---
Pt reports pain 10 at 2114 and 2129. Pt transported to [facility] at 2129 by [facility].
== END 2019-09-27 21:30 | disposition short-term general hospital (02) | DRG 282 ==
LOC: ED 14:12 → PCU 14:36 → ICU 15:55
PROVIDERS: Admitting Provider Student in an Organized Health Care Education/Training Program; Emergency Provider Emergency Medicine; PCP Family Medicine; Visit Provider Specialist
DX: I21.4 Non-ST elevation (NSTEMI) myocardial infarction (principal); Z79.82 Long term (current) use of aspirin; Z66 Do not resuscitate; E78.5 Hyperlipidemia, unspecified; F17.200 Nicotine dependence, unspecified, uncomplicated; I25.82 Chronic total occlusion of coronary artery; I25.10 Atherosclerotic heart disease of native coronary artery without angina pectoris
CPT/HCPCS: 71045; 80048; 84484; 85025; 93005; 93458; 99152; 99153; 99284; J7040; Q9967; C1769; C1894; J2405

== ENCOUNTER → 2019-10-12 07:11 | Outpatient (CLI) | payer OTHER, SELFPAY ==
[2019-10-08 12:24] VITALS: BMI 22.7
--- NOTE | 2019-10-12 07:19 | CR.ITP_ITS ---
Diagnosis - General Information Admitting Diagnosis: S/P STEMI; PCI W/CORONARY STENT PLACEMENT Personal Learning Style:: Audio/Visual, Written Barriers to Learning: No Barriers Stage of change r/t lifestyle modifications:: Action Gave educational material for:: Treating Heart Disease, Emotions & Heart Disease, Stress Management & Relaxation, Sleep Disorders & Heart Disease, How The Heart Works, What it means to have Heart Disease, How Coronary Artery Disease is Diagnosed, Heart Procedures, What Heart Medications Do, Risk Factors & Modifications, Living an Active Life, Nutrition - Education/Goals Individual Counseling: Initial Assessment: Abnormal Cholesterol Levels, High Blood Pressure Cardiac Rehabilitation Goals: 1. Maintain the individual as the primary focus of care. 2. To improve the patient's quality of life. 3. Identification of cardiac risk factors and provide cardiac risk factor management. 4. Enhance the psychosocial status of the patient. 5. Reconditioning enough to allow the patient to resume customary activities. 6. Control symptoms of cardiac disease Personal Goals: Initial Assessment: Improve management of stress and emotions, Participate in home exercise program, Improve muscle strength and endurance, Control risk factors (learn risk factor modification) Scale for measuring improvement of personal goals: Enter appropriate number in Comments. 2 = Unchanged. 3 = Slightly Better. 4 = Moderate Improvement. 5 = Met my Goal - Diagnosis & Disease Process Outcomes/Goals: Pt IDs own risk factors & lifestyle modifications by Session 10, Verbalizes symptoms of angina & response by session 3., Pt independently manages Plan/Interventions: Assist Pt to ID & engage in lifestyle modification to reduce CVD risk, Instruct on individual risk factors, Review symptoms of angina & emergency actions, Review secondary diagnosis & identify educational needs. - Safety Referral to Physical Therapy: No Referral to [facility] Case Management: No Fall Risk Assessed:: Yes Assistive Devices:: None Exercise - Initial Assessment - Visit Date of Eval: 10/12/19 Session #:: 0 - PRE CARDIAC REHAB EVALUATION Mets: Pre-: >7 METS for 30 minutes by discharge - Physician Prescribed Exercise Modalities: Treadmill, Rower, Airdyne Frequency: 3x/week for 12 weeks [36 sessions] Intensity: 60-80% of age predicted maximum heart rate reserve Current METSs:: 3.5 Target Heart Rate:: 98-128 Resting Blood Pressure: 118/64 EKG Type: SINUS RHYTHM - Outcomes & Goals Goals:: Verbalizes understanding of THR, RPE & goal METS by session 6, Documents in home exercise log/reports 30 min aerobic 5 day/wk by DC, Demonstrates accurate pulse taking by DC - Intervention & Plan Exercise Program Goals: Instruct on personal THR & RPE, Instruct on MET level & personal MET goal, Instruct on home exercise - Physical Activity Home Exercise Physical Activity - Home Exercise: Safe Exercise, Warm-up, Self-monitoring, Cool-Down, Home Exercise > 30 min Daily, Sitting Time <3 hours/daily - Outcomes & Goals Outcomes/Goals: Demonstrates correct Warm-up/exercise Cool-Down (S3) if = 2.5 METs, Verbalizes symptoms of exercise intolerance by Session 3 (S3), Demonstrate safe equipment use (S3) & follows exercise prescrition (6) - Intervention & Plan Plan/Intervention: Instruct warm-up & cool-down if exercising at > 2 METs, Instruct on symptoms of exercise intolerance & actions to take, Instruct & monitor on saf, Assess intial functional capacity & safety risk Nutrition - Initial Assessment - Program Goals Nutrition Program Goals: LDL <100 optimal. 100 - 129 Near optimal. 130 - 159 Borderline High. 160 - 189 High. Total Cholesterol <200 desirable. 200 - 239 Borderline High. >/= 240 High. HDL < 40 Low >/=60 High. Triglycerides <150 desirable. <199 optimal. VlDL 5 - 40. HgbA1C <7%. BMI <25 Patient has diagnosis of Hyperlipidemia (ICD E78)?: Yes - Visit Date of Assessment:: 10/12/19 Session #:: 0 - PRE CARDIAC REHAB EVALUATION - Cholesterol/Lipids Triglycerides (mg/dL): 82 - 02/13/2018 Total Cholesterol (mg/dL): 169 LDL Cholesterol (mg/dL): 101 HDL Cholesterol (mg/dL): 52 Determine presence & major risk factors that modify LDL goal: Hypertension or hypertensive medication, Age men > 45 years; women >/= 55 years Outcomes/Goals: Pt IDs own risk factors & lifestyle modifications by Session 10, Verbalizes symptoms of angina & response by session 3., Pt independently manages Intervention/Plan: Instruct on personal lipid levels & lipid goals/NCEP guidelines, Instruct on cholesterol - Diabetes (Other Core Measures) Diabetes Type: Not Applicable - Weight Mgt (Other Care) Not Applicable: Yes Height: 5 ft 11 in Weight:: 163 lb BMI: 22.7 Diagnosis Overweight/Obesity BMI> 30% ICD-10 E66: No Diagnosis High BMI/Morbid Obesity BMI> 35% ICD-10 Z68: No Outcomes/Goals: Pt sets, maintains & shows weight loss goal & trend during rehab Intervention/Plan: Instruct on ideal BMI & set weight loss goal w/patient - Healthy Eating Habits Outcomes/Goals:: Consume diet rich in vegs,fruits,whole grain/high fiber,fish,lean meat, Limit sat/trans fats,cholesterol & added salts & sugars Intervention/Plan:: Assess current eating habits - Education Gave educational materials for:: Healthy eating Medical - Initial Assessment - Visit Date of Eval: 10/12/19 Session #:: 0 - PRE-CARDIAC REHAB EVALUATION - Medication Compliance Preventative Medication(s):: Aspirin, KOJO inhibitor, Ticagrelor/P2Y12 inhibitor, Statin/lipid, Beta shirin H/O mental health issues: depression, anxiety, or addiction?: Yes Doesn?t believe in the benefits of treatment?: No Believes medications are unnecessary or harmful?: No Has a concern about medication side effects?: No Expresses concern over the cost of medications?: No Outcomes/Goals: Verbalizes medications,desired effect & common side effects @ DC, Pt self-reports following medication regimen, Keeps card in wallet w/medications listed by DC Interventions/plans: Instruct on medication effects & side effects, Review medication list w/patient every two weeks, Instruct importance of taking meds as ordered & assist problem solving - Tobacco Use Tobacco Use: Non-smoker - patient confirms he is a non-smoker even though his ER notes indicated he was a current smoker. - Hypertension Hypertension Diagnosis:: Hypertension ICD-10 I10 Resting Blood Pressure:: 118/64 [place] [employer] Hypertension Guidelines: [place] [employer] Hypertension Guidelines. Normal BP Less than 120/80. Elevated BP 120/80. Hypertension Stage 1: BP 130-139/80-89. Hypertesnion Stage 2: BP 140 or higher/90 or higher. Hypertension Crisis: BP higher than 180/120 Outcomes/Goals: Able to verbalize/achieve optimal blood pressure <130/80, I ncorporates diet changes & exercise for blood pressure control by DC Interventions/plan: Instruct on optimal blood pressure, hypertension & medications, Instruct on effects of sodium, alcohol, stress, exercise &hypertension - Tobacco Cessation Referral Smoking Cessation Referral:: No Individual Education/Counseling:: No Education Schedule Given:: Yes Psychosocial - Initial Assess - VIsit Date of Eval: 10/12/19 Session #:: 0 - PRE CARDIAC REHAB EVALUATION Not Applicable: Yes History of previous Mental disease:: No - Target Goals Target Goals: Assess presence or absence of depression. Using a valid screening tool, maximizes coping skills. Positive support system - Psychosocial Test Tool Used:: Nikki Clemons QOL Cardiac, PHQ-9 Questionnaire phq-9 Severity: Severity. 1-4 Minimal Depression. 5-9 Mild Depression. 10-14 Moderate Depression. 15-19 Moderately Sever Depression. 20-27 Severe Depression. Rule: - Referral to Behavioral Health PS - Interventions: Yes Attend Stress Management Classes, No Referral to Behavioral Health if PHQ-9 score >9:, No Referral to [facility], No Referral to Physician if PHQ-9 if score is 5-9: - Outcomes/Goals: See list Psychosocial Outcomes/Goals:: ID's personal stressors & 2 strategies to manage stress by discharge - Intervention/Plan: See List Interventions/Plan:: Assess stressors,coping strategies & signs of derpression on admission, Instruct/assist pt to develop coping & personal stress Mgt strategies, Instruct patient to recognize signs & symptoms of depression, Instruct patient to recog Patient Health Questionnaire Initial Assessment 1. Little interest or pleasure in doing things: Not at all 2. Feeling down, depressed, or hopeless: Not at all 3. Trouble falling or staying asleep, or sleeping too much: Nearly every day 4. Feeling tired or having little energy: Not at all 5. Poor appetite or overeating: Not at all 6. Feeling bad about yourself -- or that you are a failure or have let yourself or your family down: Not at all 7. Trouble concentrating on things, such as reading the newspaper or watching television: Not at all 8. Moving or speaking so slowly that other people could have noticed. Or the opposite - being so fidgety or restless that you have been moving around a lot more than usual: Not at all 9. Thoughts that you would be better off , or of hurting yourself in some way: Not at all How difficult have these problems made it for you to do your work, take care of things at home, or get along with other people?: Not difficult at all Total Score: 3 EMANUEL-Q SV Test - Statements CAD is a disease of the arteries in the heart: False Examples of risk factors for heart disease: True Angina is chest pain or discomfort: True The benefits of resistance training include: True Eating more meat and dairy products: False Anti-platelet medications such as aspirin are important: True The only effective way to manage stress: False An exercise warm-up slowly increases heart rate: True Prepared, processed foods usually have high sodium: True Depression is common after a heart attack: True The statin medications lower cholesterol: True To control blood pressure, lower the amount of sodium: True If someone gets chest discomfort during walking: False Transfats are partially hydrogenated vegetable oils: I Don't Know Sleep apnea that is not treated increases the risk: False To control cholesterol, one should become a vegetarian: False Someone knows if he/she is exercising at the right level: True Diabetes cannot be prevented with exercise & health eating: False Stress is a large risk for heart attack: True A diet that can help lower blood pressure is rich in: I Don't Know - Total Score Total Correct Responses: 18 Self-Efficacy Initial Assessment We would like to know how confident you are in doing certain activities. Please select your confidence level for:: Select your confidence level for the following using the scale 1-10 where 1 is not at all confident and 10 is totally confident. Your score is the average of all 6 responses. Fatigue: How confident are you that you can keep the fatigue caused by your disease from interfering with the things you want to do? Select Number: 8 Physical Discomfort or Pain: How confident are you that you can keep the physical discomfort or pain of your disease from interfering with the things you want to do? Select Number: 9 Emotional Distress: How confident are you that you can keep the emotional distress caused by your disease from interfering with the things you want to do? Select Number: 9 Other Symptoms or Health Problems: How confident are you that you can keep other symptoms or health problems from interfering with the things you want to do? Select Number: 9 Different Tasks and Activities: How confident are you that you can do the different tasks and activities needed to manage your health condition so as to reduce your need to see a doctor? Select Number: 9 Medication: How confident are you that you can do things other than just taking medication to reduce how much your illness affects your everyday life? Select Number: 9 Total Score:: 8 Nutrition Survey - Nutrition Survey Instructions Scoring Instructions: Scoring is as follows: Yes = 1 points. No = 0 point. Patient score that is >/=12 is considered to be at potential nutritional risk and could benefit from a referral to a registered dietitian. - Nutrition Survey Initial Have you lost >10 lbs over the past 2 months without trying?: No Are you following a special diet at home for diabetes, low fat, or low salt?: Yes Are you interested in meeting with a dietitian for help understanding your diet?: No Do you eat less than 3 meals a day?: No Do you eat fatty meats (pabon, sausage, ribs, etc), fried foods, desserts, large amounts of salad dressings, margarine, butter, or cheese most days?: No Do you have food allergies? [Enter types in comment field]: No Do you eat in restaurants more than 3 times a week?: No Do you season food with salt, seasoning salt, or garlic salt?: No Do you used canned, boxed, frozen meals, or soups, seasoning packets?: No Total Score:: 1
--- NOTE | 2019-10-12 07:21 | CR.HP_ITS ---
CR - History & Physical - General Arrival date:: 10/12/19 Arrival time:: 07:30 Date of Referral:: 10/08/19 Date of CR Evaluation:: 10/12/19 Referring Physician: DR. MAEVE WYNNE Primary Diagnosis: STEMI; S/P PCI W/CORONARY STENT - History of Present Cardiac Event Onset Date: Enter Onset Date of cardiac illnesses in Comment field below Acute Myocardial Infarction within 12 months:: Yes - STEMI 09/27/2019 PTCA or coronary stenting:: Yes - 09/27/2019 Type of Symptoms:: UNSTABLE ANGINA WHICH HAVE BEEN GOING ON FOR 1-2 WEEKS PRIOR TO PRESENTING TO THE EMERGENCY ROOM. CHEST PAIN EASED AT REST, upon day of coming to ER, chest pain was constant retrosternal and aching, some mild sanchez rtness of breath, nasuea with vomitting, mild diaphoresis. Interventions with present event:: EMERGENT HEART CATH & TRANSPORTED TO [facility] from cardiac cath technician. Were there any complications?: Some arryhtmia after procedure but responded well to medication - Medications Home Medications: Ambulatory Orders Medication Instructions Recorded multivitamin 1 tab PO QAM 05/08/17 amiodarone 200 mg tablet 200 mg PO DAILY #30 tab 10/08/19 apixaban 5 mg tablet 5 mg PO BID #60 tab 10/08/19 atorvastatin 40 mg tablet 40 mg PO QHS #90 tab 10/08/19 calcium polycarbophil 625 mg tablet 1,250 mg PO DAILY 10/08/19 cholecalciferol (vitamin D3) 25 25 mcg PO DAILY 10/08/19 mcg (1,000 unit) capsule ipratropium bromide 42 mcg (0.06 ml INTRANASAL 10/08/19 %) nasal spray lisinopril 2.5 mg tablet 2.5 mg PO DAILY #90 tab 10/08/19 metoprolol succinate 25 mg 25 mg PO DAILY #90 tab 10/08/19 tablet,extended release 24 hr ticagrelor 90 mg tablet 90 mg PO Q12H #180 tab 10/08/19 - Allergies Allergies/Adverse Reactions: Allergies amoxicillin Allergy (Verified 10/12/19 07:43) Nausea/Vom/Diarrhea - Sleep Disorder Evaluation Hx of Sleep Apnea: No Do you snore loudly (louder than talking or can be heard through closed doors)?: Yes Do you often feel tired/ fatigued/ sleepy during daytime?: No Has anyone observed you stop breathing during sleep?: No History of Hypertension (for STOP score): Yes STOP Results: Positive Advanced Directives - Advanced Directives Power of Telesales Consultant: Yes Living Will: Yes Advance Directives Information Provided: No Advance Directives on File: No DNR Order?:: No - MOLST See MOLST form: No Past Medical History - Covid-19 Screening Fever: No Unexplained muscle aches: No Current respiratory symptoms: No Upper respiratory infections symptoms: No Gastro-intestinal symptoms: No Nyp-Indn-Xxavez symptoms: No Has tested positive for COVID-19 in last 30 days: No Had contact w/person w/symptoms or Covid-19 (+) last 14 days: No Has High Risk Exposures ID'd by Health dept/Inf Control team: No 65 years or older:: No Lives in Assisted Living facility:: No Has a chronic lung disease or moderate to severe asthma:: No Has a serious heart condition:: No Immunocompromised:: No Severely obese (Body Mass Index of 40 or higher):: No Diabetic:: No Has chronic kidney disease undergoing dialysis:: No Has liver disease:: No - Past Medical Illness Medical History: Past Medical History (Last Reviewed 10/08/19 @ 14:[address] Maeve Wynne MD) Atherosclerosis of coronary artery of alutiiq heart without angina pectoris (Chronic) I25.[address] elevation myocardial infarction (STEMI) (Chronic) Onset Date: 09/27/19 I25.2 Anteroseptal myocardial infarction (Chronic) Onset Date: 09/27/19 I21.09 Paroxysmal atrial flutter (Acute) Onset Date: 09/28/19 I48.92 Paroxysmal atrial fibrillation (Acute) Onset Date: 09/28/19 I48.0 Hyperlipidemia (Chronic) E78.5 Left inguinal hernia K40.90 Acute coronary syndrome (Resolved) Onset Date: 09/27/19 I24.9 History of non-ST elevation myocardial infarction (NSTEMI) (Ruled-out) Onset Date: 09/27/19 I25.2 - Past Surgical History Surgical History: Past Surgical History (Last Reviewed 10/08/19 @ 14:[address] Maeve Wynne MD) History of coronary artery stent placement (Resolved) Onset Date: 09/28/19 Z95.5 PCI-MAXINE-Mid LAD w/ 3.5 x 38 mm Xience Stent and MAXINE-Ostium LCx w/ 2.5 x 12 mm Xience Stent 09/28/2019 History of colonoscopy Z98.890 History of left heart catheterization Onset Date: 09/27/19 Z98.890 History of tonsillectomy and adenoidectomy Z98.890 Surgical History: no surgical history - Family History Summary Family History: Family History (Last Reviewed 10/08/19 @ 14:[address] Maeve Wynne MD) Grandmother Diabetes Father Cancer lymphoma Social History - Smoking History Smoking Status: Never smoker Hx Tobacco Use: No Hx Smoking Exposure: No - Alcohol Use Alcohol Usage: Yes - HOLIDAYS & SPECIAL OCCASIONS (red wine) - Substance Abuse Hx Substance Use: No - Occupation Occupation (List type of work in comments):: Employed - Hobbies, Recreation, Social Activities Hobbies: Hiking, Walking, Other - photography, [employer], journaling, [employer] gardening, Recreational Activities: I am able to engage in all my recreational activities Social Environment - Status Marital Status: - Current Living Arrangements Living Environment:: Spouse - Children How many children do you have?: 2 Do any of your children live nearby?: Yes - one is in the [facility] - Safety Do you feel safe in your surroundings?: Yes - Assistance Do you need any assistance at home?: no Review of Systems - Review of Systems Hints: Right click = Denies (Slash). Left click = Reports ([place]) Review of Present Symptoms: Reports: Heart Arrhythmia/Irregularities - treated with medications and has been stable otherwise., Appetite - Normal, Appetite - Special Diet. Denies: Shortness of Breath at Rest, Shortness of Breath with Exertion, Angina, Dizziness/Lightheadedness, Fatigue, Sleep - Normal, Sexual Changes - Oct 2018 went through [employer] diet; similar to mediterranian diet. - Pain Is Patient Pain Free?: Yes Pain Location: none Pain Level: 0/10 Risk Factor Assessment - Chief Complaint Chief Complaint: PT IS A 69-YEAR OLD MALE OF DR. WYNNE'S WHO PRESENTS TO CARDIAC REHAB TO DAY FOLLOWING RECENT STEMI AND EMERGENT PCI INTERVENTION WITH STENT PLACEMENT ON 09/27/2019. - Vital Signs Temperature: 97.3 F Respiratory Rate: 16 Pulse Ox: 97 Blood Pressure: 118/64 Nailbeds:: PINK - Pulse Pulse Rate: 68 Pulse Rhythm: Regular - Hypertension Blood Pressure Sitting - Left Arm: 118/64 - Blood Cholesterol/Lipids Total Cholesterol (mg/dL) Goal = less than 200 mg/dL: 169 - 02/13/2018 HDL Cholesterol (mg/dL) Goal = less than 40 mg/dL: 52 LDL Cholesterol (mg/dL) Goal = less than 70 mg/dL: 101 Triglycerides (mg/dL) Goal = less than 150 mg/dL: 169 - Obesity Height: 5 ft 11 in Weight:: 163 lb Weight in Pounds: 163.0 lbs Weight Source: Standing Scale Body Mass Index (BMI): 22.7 Nutritional Referral for Obesity: No - Risk Stratification Risk Guidelines: Lowest Risk: Risk Factor for Smoking, Risk Factor for Dyslipidemia - TREATED FOR HYPERLIPIDEMIA, Risk Factor for Diabetes, Risk Factor for Obesity, Risk Factor for Hypertension - MEDICATION CONTROLLED, Risk Factor for Sedentary Lifestyle, Risk Factor for Depression - For Smoking Smoking Risk Guidelines: Smoking Low Risk: None or quit greater than 6 months ago. Smoking Moderate Risk: Smoker or quit 6 months or less ago. Smoking High Risk: Smoker - For Dyslipidemia Dyslipidemia Risk Guidelines: Low Risk: Moderate Risk: High Risk: 15-25% fat 25.1-29% fat >/= 30% fat. <7% sat fat 7-9% sat fat >9% sat fat. <150 mg chol 150-299 mg chol >/= 300 mg chol. LDL <100 LDL 100-129 LDL >/= 130. Chol/HDL ratio <5.0 Chol/HDL ratio 5.0-6.0 Chol/HDL ratio >6.0. Triglycerides <100 Triglycerides 100-149 Triglycerides >/= 150 - For Diabetes Mellitus Diabetes Risk Guidelines: Diabetes Low Risk: HgA1c <6.5% and/or FBG <120. Diabetes Moderate Risk: HgA1c 6.6-7.9% and/or FBG 120-180. Diabetes High Risk: HgA1c >/= 8% and/or FBG >180 - For Obesity/Overweight Obesity/Overweight Risk Guidelines: Obesity Low Risk: BMI <25.0. Obesity Moderate Risk: BMI 25-29.9. Obesity High Risk: BMI >/= 30.0 - For Hypertension Hypertension Risk Guidelines: Hypertension Low Risk: Systolic <120 and Diastolic <80. Hypertension Moderate Risk: Systolic 120-139 and Diastolic 80-89. Hypertension High Risk: Systolic >/= 140 and Diastolic >/= 90 - For Sedentary Lifestyle Sedentary Lifestyle Risk Guidelines: Sedentary Lifestyle Low Risk: >/= 1,500 kcal/week. Sedentary Lifestyle Moderate Risk: 700-1,499 kcal/week. Sedentary Lifestyle High Risk: < 700 kcal/week - For Depression Depression Risk Guidelines: Depression Low Risk: Not clinically depressed. Depression Moderate Risk: Mildly depressed. Depression High Risk: Clinically depressed - Family History Family History: Family History (Last Reviewed 10/08/19 @ 14:[address] Maeve Wynne MD) Grandmother Diabetes Father Cancer Motivation - Motivation to Participate On a scale of 1 to 10, how prepared are you to commit to attending program?: 9 What do you see as barriers to successfully being able to complete the program?: unexpected meetings What do you see as the benefits of succesfully completing the program? In other words, what do you hope to get out of participating in the program?: everything connected, physical health and stamina Are there issues you are dealing with that will interfere with completing the program?: none Do you have a spouse or signficant other, family or friends who will help support you to complete the program?: yes
[2019-10-12 07:50] VITALS: BP 118/64; PULSE 68; RESP 16; TEMP 36.3; O2SAT 97; BMI 22.7
[2019-10-12 08:27] VITALS: BP 118/64; BMI 22.7
== END ==
PROVIDERS: PCP Family Medicine; Referring Provider Internal Medicine Cardiovascular Disease; Visit Provider Internal Medicine Cardiovascular Disease
DX: I25.2 Old myocardial infarction (principal); Z95.5 Presence of coronary angioplasty implant and graft

== ENCOUNTER 2019-10-15 13:02 | Outpatient (RCR) | payer OTHER, SELFPAY ==
[2019-10-12 07:50] VITALS: BMI 22.7
[2019-10-12 08:27] VITALS: BMI 22.7
== END 2019-10-15 23:59 ==
LOC: CR 13:02
PROVIDERS: PCP Family Medicine; Referring Provider Internal Medicine Cardiovascular Disease; Visit Provider Internal Medicine Cardiovascular Disease
DX: I25.10 Atherosclerotic heart disease of native coronary artery without angina pectoris (principal); I25.2 Old myocardial infarction; I21.09 ST elevation (STEMI) myocardial infarction involving other coronary artery of anterior wall; I48.0 Paroxysmal atrial fibrillation; E78.5 Hyperlipidemia, unspecified; I48.92 Unspecified atrial flutter; Z95.5 Presence of coronary angioplasty implant and graft
CPT/HCPCS: 93798

== ENCOUNTER → 2019-10-22 11:55 | Outpatient (CLI) | payer OTHER, SELFPAY ==
[2019-10-12 07:50] VITALS: BMI 22.7
[2019-10-12 08:27] VITALS: BMI 22.7
--- NOTE | 2019-10-25 14:05 | STRESSREP ---
Stress Test Report Exercise stress test 69-year-old man with a history of recent anterior myocardial infarction. Stress protocol: Resting EKG demonstrates sinus bradycardia with a rate of 50 bpm. Resting blood pressure is 110/58 mmHg. The patient exercised according to the regular Isaiah protocol for a total duration of 7 minutes and 30 seconds the maximum heart rate was 109 bpm which was 72% of max impacted heart rate the maximum workload was 9.3 metabolic equivalents. The patient maintained sinus rhythm throughout the recording. The test was terminated due to dyspnea. There were no ST or T wave changes noted at rest or with exercise to suggest ischemia no arrhythmias were noted. The peak blood pressure was 140/70 mmHg. Conclusion Submaximum stress treadmill with no EKG changes for ischemia. No ischemia noted. No clinical angina present.
== END ==
PROVIDERS: PCP Family Medicine; Referring Provider Family Medicine; Visit Provider Family Medicine
DX: R07.9 Chest pain, unspecified (principal)
CPT/HCPCS: 93017

== ENCOUNTER 2019-11-15 14:15 | Outpatient (RCR) | payer OTHER, SELFPAY ==
[2019-10-12 07:50] VITALS: BMI 22.7
[2019-10-12 08:27] VITALS: BMI 22.7
--- NOTE | 2019-11-11 07:15 | CR.ITP_ITS ---
Exercise - 30-day Assessment - Visit Date of Eval: 11/11/19 Session #:: 11 - Physician Prescribed Exercise Modalities: Treadmill, Rower, Airdyne Frequency: 3x/week for 12 weeks [36 sessions] Intensity: 60-80% of age predicted maximum heart rate reserve Current METSs:: 6.5 Target Heart Rate:: 98-128 Current RPE:: 11-13 Maximum Excercise HR:: 116 Resting Blood Pressure: 100/54 - controlled w/medication Maximum Exercise Blood Pressure: 148/82 EKG Type: sinus lucia to sinus tach without ectopy. - Outcomes & Goals Goals:: Verbalizes understanding of THR, RPE & goal METS by session 6, Documents in home exercise log/reports 30 min aerobic 5 day/wk by DC, Demonstrates accurate pulse taking by DC - Intervention & Plan Exercise Program Goals: Instruct on personal THR & RPE, Instruct on MET level & personal MET goal, Show patient to take own pulse /validate performance until accurate, Instruct on home exercise - 30-day Reassessments 30 day Reassessments:: Progressing - Physical Activity Home Exercise Physical Activity - Home Exercise: Safe Exercise, Warm-up, Self-monitoring, Cool-Down, Home Exercise > 30 min Daily, Sitting Time <3 hours/daily - Outcomes & Goals Outcomes/Goals: Demonstrates correct Warm-up/exercise Cool-Down (S3) if = 2.5 METs, Verbalizes symptoms of exercise intolerance by Session 3 (S3), Demonstrate safe equipment use (S3) & follows exercise prescrition (6) - Intervention & Plan Plan/Intervention: Instruct warm-up & cool-down if exercising at > 2 METs, Instruct on symptoms of exercise intolerance & actions to take, Instruct & monitor on saf, Assess intial functional capacity & safety risk - 30-day Reassessments 30 day Reassessments:: Progressing Nutrition - 30-Day Assessment - Program Goals Nutrition Program Goals: LDL <100 optimal. 100 - 129 Near optimal. 130 - 159 Borderline High. 160 - 189 High. Total Cholesterol <200 desirable. 200 - 239 Borderline High. >/= 240 High. HDL < 40 Low >/=60 High. Triglycerides <150 desirable. <199 optimal. VlDL 5 - 40. HgbA1C <7%. BMI <25 Patient has diagnosis of Hyperlipidemia (ICD E78)?: Yes - Visit Date of Assessment:: 11/11/19 Session #:: 11 - Cholesterol/Lipids Triglycerides (mg/dL): 0 - no new labs Determine presence & major risk factors that modify LDL goal: Hypertension or hypertensive medication, Age men > 45 years; women >/= 55 years Outcomes/Goals: Pt IDs own risk factors & lifestyle modifications by Session 10, Verbalizes symptoms of angina & response by session 3., Pt independently manages Intervention/Plan: Instruct on personal lipid levels & lipid goals/NCEP guidelines, Instruct on cholesterol Referral to dietitian:: Yes 30-day Reassessments:: Progressing - Diabetes (Other Core Measures) Diabetes Type: Not Applicable - Weight Mgt (Other Care) Not Applicable: Yes Height: 5 ft 11 in Weight:: 164 lb BMI: 22.8 Diagnosis Overweight/Obesity BMI> 30% ICD-10 E66: No Diagnosis High BMI/Morbid Obesity BMI> 35% ICD-10 Z68: No Outcomes/Goals: Pt sets, maintains & shows weight loss goal & trend during rehab Intervention/Plan: Instruct on ideal BMI & set weight loss goal w/patient - Healthy Eating Habits Will attend diet classes:: Yes Outcomes/Goals:: Consume diet rich in vegs,fruits,whole grain/high fiber,fish,lean meat, Limit sat/trans fats,cholesterol & added salts & sugars Intervention/Plan:: Assess current eating habits 30-day Reassessments:: Progressing - Education Gave educational materials for:: Healthy eating Medical- 30-Day Assessment - Visit Date of Eval: 11/11/19 - Medication Compliance Preventative Medication(s):: Aspirin, Ticagrelor/P2Y12 inhibitor, Statin/lipid, Beta shirin H/O mental health issues: depression, anxiety, or addiction?: No Doesn?t believe in the benefits of treatment?: No Believes medications are unnecessary or harmful?: No Has a concern about medication side effects?: No Expresses concern over the cost of medications?: No Outcomes/Goals: Verbalizes medications,desired effect & common side effects @ DC, Pt self-reports following medication regimen, Keeps card in wallet w/medications listed by DC Interventions/plans: Instruct importance of taking meds as ordered & assist problem solving 30-day Reassessments:: Progressing - Tobacco Use Tobacco Use: Non-smoker - Hypertension Hypertension Diagnosis:: Hypertension ICD-10 I10 Resting Blood Pressure:: 100/54 - controlled w/medication [place] [employer] Hypertension Guidelines: [place] [employer] Hypertension Guidelines. Normal BP Less than 120/80. Elevated BP 120/80. Hypertension Stage 1: BP 130-139/80-89. Hypertesnion Stage 2: BP 140 or higher/90 or higher. Hypertension Crisis: BP higher than 180/120 Peak Exercise Blood Pressure:: 148/82 Outcomes/Goals: Able to verbalize/achieve optimal blood pressure <130/80, I ncorporates diet changes & exercise for blood pressure control by DC Interventions/plan: Instruct on optimal blood pressure, hypertension & medications, Instruct on effects of sodium, alcohol, stress, exercise &hypertension 30 day Reassessments:: Progressing - Tobacco Cessation Referral Smoking Cessation Referral:: No Individual Education/Counseling:: No Education Schedule Given:: Yes Psychosocial - 30-Day Assess - VIsit Date of Eval: 11/11/19 Session #:: 11 Not Applicable: Yes History of previous Mental disease:: No - Target Goals Target Goals: Assess presence or absence of depression. Using a valid screening tool, maximizes coping skills. Positive support system - Psychosocial Test Tool Used:: [employer] [place] QOL Cardiac, PHQ-9 Questionnaire phq-9 Severity: Severity. 1-4 Minimal Depression. 5-9 Mild Depression. 10-14 Moderate Depression. 15-19 Moderately Sever Depression. 20-27 Severe Depression. Rule: - Referral to Behavioral Health PS - Interventions: Yes Attend Stress Management Classes, No Referral to Behavioral Health if PHQ-9 score >9:, No Referral to [facility], No Referral to Physician if PHQ-9 if score is 5-9: - Outcomes/Goals: See list Psychosocial Outcomes/Goals:: ID's personal stressors & 2 strategies to manage stress by discharge - Intervention/Plan: See List Interventions/Plan:: Assess stressors,coping strategies & signs of derpression on admission, Instruct/assist pt to develop coping & personal stress Mgt strategies, Instruct patient to recognize signs & symptoms of depression, Instruct patient to recog - 30-day Reassessments: 30 day Reassessments:: Progressing Patient Health Questionnaire 30-Day Re-eval Assessment 1. Little interest or pleasure in doing things: Not at all 2. Feeling down, depressed, or hopeless: Not at all 3. Trouble falling or staying asleep, or sleeping too much: Not at all 4. Feeling tired or having little energy: Not at all 5. Poor appetite or overeating: Not at all 6. Feeling bad about yourself -- or that you are a failure or have let yourself or your family down: Not at all 7. Trouble concentrating on things, such as reading the newspaper or watching television: Not at all 8. Moving or speaking so slowly that other people could have noticed. Or the opposite - being so fidgety or restless that you have been moving around a lot more than usual: Not at all 9. Thoughts that you would be better off , or of hurting yourself in some way: Not at all Total Score: 0 Self-Efficacy 30-Day Re-eval Assessment We would like to know how confident you are in doing certain activities. Please select your confidence level for:: Select your confidence level for the following using the scale 1-10 where 1 is not at all confident and 10 is totally confident. Your score is the average of all 6 responses. Fatigue: How confident are you that you can keep the fatigue caused by your disease from interfering with the things you want to do? Select Number: 9 Physical Discomfort or Pain: How confident are you that you can keep the physical discomfort or pain of your disease from interfering with the things you want to do? Select Number: 10 Emotional Distress: How confident are you that you can keep the emotional distress caused by your disease from interfering with the things you want to do? Select Number: 10 Other Symptoms or Health Problems: How confident are you that you can keep other symptoms or health problems from interfering with the things you want to do? Select Number: 10 Different Tasks and Activities: How confident are you that you can do the different tasks and activities needed to manage your health condition so as to reduce your need to see a doctor? Select Number: 10 Medication: How confident are you that you can do things other than just taking medication to reduce how much your illness affects your everyday life? Select Number: 10 Total Score:: 9
[2019-11-11 07:21] VITALS: BP 100/54; BP 148/82; BMI 22.8
== END 2019-11-15 23:59 ==
LOC: CR 14:15
PROVIDERS: PCP Family Medicine; Referring Provider Internal Medicine Cardiovascular Disease; Visit Provider Internal Medicine Cardiovascular Disease
DX: I25.10 Atherosclerotic heart disease of native coronary artery without angina pectoris (principal); I25.2 Old myocardial infarction; Z95.5 Presence of coronary angioplasty implant and graft; I48.0 Paroxysmal atrial fibrillation; I48.92 Unspecified atrial flutter; E78.5 Hyperlipidemia, unspecified
CPT/HCPCS: 93798

== ENCOUNTER → 2019-11-23 13:25 | Outpatient (CLI) | payer OTHER, SELFPAY ==
[2019-11-11 07:21] VITALS: BMI 22.8
[2019-11-12 08:51] VITALS: BMI 22.7
== END ==
PROVIDERS: PCP Family Medicine; Referring Provider Family Medicine; Visit Provider Family Medicine
DX: R05 Cough (principal)
CPT/HCPCS: 87635; U0003

== ENCOUNTER 2019-12-13 14:15 | Outpatient (RCR) | payer OTHER, SELFPAY ==
[2019-11-11 07:21] VITALS: BMI 22.8
[2019-11-12 08:51] VITALS: BMI 22.7
[2019-11-16 00:43] VITALS: BP 100/54; BP 148/82
--- NOTE | 2019-12-10 07:09 | CR.ITP_ITS ---
Exercise - 60-day Assessment - Visit Date of Eval: 12/10/19 Session #:: 21 - Physician Prescribed Exercise Modalities: Treadmill, Rower, Airdyne Frequency: 3x/week for 12 weeks [36 sessions] Intensity: 60-80% of age predicted maximum heart rate reserve Current METSs:: 8.5 increase from 5.5 Target Heart Rate:: 98-128 Current RPE:: 12-13 Maximum Excercise HR:: 129 Resting Blood Pressure: 112/58 - controlled with medication Maximum Exercise Blood Pressure: 160/80 EKG Type: sinus lucia to sinus tach with isolated PVC - Outcomes & Goals Goals:: Verbalizes understanding of THR, RPE & goal METS by session 6, Documents in home exercise log/reports 30 min aerobic 5 day/wk by DC, Demonstrates accurate pulse taking by DC - Intervention & Plan Exercise Program Goals: Instruct on personal THR & RPE, Instruct on MET level & personal MET goal, Show patient to take own pulse /validate performance until accurate, Instruct on home exercise - 30-day Reassessments 30 day Reassessments:: Met - Physical Activity Home Exercise Physical Activity - Home Exercise: Safe Exercise, Warm-up, Self-monitoring, Cool-Down, Home Exercise > 30 min Daily, Sitting Time <3 hours/daily - Outcomes & Goals Outcomes/Goals: Demonstrates correct Warm-up/exercise Cool-Down (S3) if = 2.5 METs, Verbalizes symptoms of exercise intolerance by Session 3 (S3), Demonstrate safe equipment use (S3) & follows exercise prescrition (6) - Intervention & Plan Plan/Intervention: Instruct warm-up & cool-down if exercising at > 2 METs, Instruct on symptoms of exercise intolerance & actions to take, Instruct & monitor on saf, Assess intial functional capacity & safety risk - 30-day Reassessments 30 day Reassessments:: Met Nutrition - 60-Day Assessment - Program Goals Nutrition Program Goals: LDL <100 optimal. 100 - 129 Near optimal. 130 - 159 Borderline High. 160 - 189 High. Total Cholesterol <200 desirable. 200 - 239 Borderline High. >/= 240 High. HDL < 40 Low >/=60 High. Triglycerides <150 desirable. <199 optimal. VlDL 5 - 40. HgbA1C <7%. BMI <25 Patient has diagnosis of Hyperlipidemia (ICD E78)?: Yes - Visit Date of Assessment:: 12/10/19 Session #:: 21 - no updated labs available - Cholesterol/Lipids Determine presence & major risk factors that modify LDL goal: Hypertension or hypertensive medication, Family history of premature CHD in Male < 55 years: female <65 yearsFa, Age men > 45 years; women >/= 55 years Outcomes/Goals: Pt IDs own risk factors & lifestyle modifications by Session 10, Verbalizes symptoms of angina & response by session 3., Pt independently manages Intervention/Plan: Instruct on personal lipid levels & lipid goals/NCEP guidelines, Instruct on cholesterol Referral to dietitian:: No - Patient declined 30-day Reassessments:: Progressing - Diabetes (Other Core Measures) Diabetes Type: Not Applicable - Weight Mgt (Other Care) Not Applicable: Yes Height: 5 ft 11 in Weight:: 164 lb BMI: 22.8 Diagnosis Overweight/Obesity BMI> 30% ICD-10 E66: No Diagnosis High BMI/Morbid Obesity BMI> 35% ICD-10 Z68: No Outcomes/Goals: Pt sets, maintains & shows weight loss goal & trend during rehab Intervention/Plan: Instruct on ideal BMI & set weight loss goal w/patient 30 day Reassessments:: Met - Healthy Eating Habits Will attend diet classes:: Yes Outcomes/Goals:: Consume diet rich in vegs,fruits,whole grain/high fiber,fish,lean meat, Limit sat/trans fats,cholesterol & added salts & sugars Intervention/Plan:: Assess current eating habits 30-day Reassessments:: Met - Education Gave educational materials for:: Healthy eating Medical- 60-Day Assessment - Visit Date of Eval: 12/10/19 Session #:: 21 - Medication Compliance Preventative Medication(s):: Aspirin, KOJO inhibitor, Ticagrelor/P2Y12 inhibitor, Statin/lipid, Beta shirin H/O mental health issues: depression, anxiety, or addiction?: No Doesn?t believe in the benefits of treatment?: No Believes medications are unnecessary or harmful?: No Has a concern about medication side effects?: No Expresses concern over the cost of medications?: No Outcomes/Goals: Verbalizes medications,desired effect & common side effects @ DC, Pt self-reports following medication regimen, Keeps card in wallet w/medications listed by DC Interventions/plans: Instruct on medication effects & side effects, Review medication list w/patient every two weeks, Instruct importance of taking meds as ordered & assist problem solving 30-day Reassessments:: Met - Tobacco Use Tobacco Use: Non-smoker - Hypertension Hypertension Diagnosis:: Hypertension ICD-10 I10 Resting Blood Pressure:: 112/58 - well controlled [place] [employer] Hypertension Guidelines: [place] [employer] Hypertension Guidelines. Normal BP Less than 120/80. Elevated BP 120/80. Hypertension Stage 1: BP 130-139/80-89. Hypertesnion Stage 2: BP 140 or higher/90 or higher. Hypertension Crisis: BP higher than 180/120 Peak Exercise Blood Pressure:: 160/80 Outcomes/Goals: Able to verbalize/achieve optimal blood pressure <130/80, Incorporates diet changes & exercise for blood pressure control by DC Interventions/plan: Instruct on optimal blood pressure, hypertension & medications, Instruct on effects of sodium, alcohol, stress, exercise &hypertension 30 day Reassessments:: Met - Tobacco Cessation Referral Smoking Cessation Referral:: No Individual Education/Counseling:: No Education Schedule Given:: Yes Psychosocial - 60-Day Assess - VIsit Date of Eval: 12/10/19 Session #:: 21 Not Applicable: Yes History of previous Mental disease:: No - Target Goals Target Goals: Assess presence or absence of depression. Using a valid screening tool, maximizes coping skills. Positive support system - Psychosocial Test Tool Used:: PHQ-9 Questionnaire phq-9 Severity: Severity. 1-4 Minimal Depression. 5-9 Mild Depression. 10-14 Moderate Depression. 15-19 Moderately Sever Depression. 20-27 Severe Depression. Rule: - Referral to Behavioral Health PS - Interventions: Yes Attend Stress Management Classes, No Referral to Behavioral Health if PHQ-9 score >9:, No Referral to [facility], No Referral to Physician if PHQ-9 if score is 5-9: - Outcomes/Goals: See list Psychosocial Outcomes/Goals:: ID's personal stressors & 2 strategies to manage stress by discharge - Intervention/Plan: See List Interventions/Plan:: Assess stressors,coping strategies & signs of derpression on admission, Instruct/assist pt to develop coping & personal stress Mgt strategies, Instruct patient to recognize signs & symptoms of depression, Instruct patient to recog - 30-day Reassessments: 30 day Reassessments:: Progressing Patient Health Questionnaire 60-Day Re-eval Assessment 1. Little interest or pleasure in doing things: Not at all 2. Feeling down, depressed, or hopeless: Not at all 3. Trouble falling or staying asleep, or sleeping too much: Not at all 4. Feeling tired or having little energy: Not at all 5. Poor appetite or overeating: Not at all 6. Feeling bad about yourself -- or that you are a failure or have let yourself or your family down: Not at all 7. Trouble concentrating on things, such as reading the newspaper or watching television: Not at all 8. Moving or speaking so slowly that other people could have noticed. Or the opposite - being so fidgety or restless that you have been moving around a lot more than usual: Not at all 9. Thoughts that you would be better off , or of hurting yourself in some way: Not at all Total Score: 0 Self-Efficacy 60-Day Re-eval Assessment We would like to know how confident you are in doing certain activities. Please select your confidence level for:: Select your confidence level for the following using the scale 1-10 where 1 is not at all confident and 10 is totally confident. Your score is the average of all 6 responses. Fatigue: How confident are you that you can keep the fatigue caused by your disease from interfering with the things you want to do? Select Number: 10 Physical Discomfort or Pain: How confident are you that you can keep the physical discomfort or pain of your disease from interfering with the things you want to do? Select Number: 10 Emotional Distress: How confident are you that you can keep the emotional distress caused by your disease from interfering with the things you want to do? Select Number: 10 Other Symptoms or Health Problems: How confident are you that you can keep other symptoms or health problems from interfering with the things you want to do? Select Number: 10 Different Tasks and Activities: How confident are you that you can do the different tasks and activities needed to manage your health condition so as to reduce your need to see a doctor? Select Number: 10 Medication: How confident are you that you can do things other than just taking medication to reduce how much your illness affects your everyday life? Select Number: 10 Total Score:: 10
[2019-12-10 07:14] VITALS: BP 112/58; BP 160/80; BMI 22.8
== END 2019-12-15 23:59 ==
LOC: CR 14:15
PROVIDERS: PCP Family Medicine; Referring Provider Internal Medicine Cardiovascular Disease; Visit Provider Internal Medicine Cardiovascular Disease
DX: I25.10 Atherosclerotic heart disease of native coronary artery without angina pectoris (principal); I25.2 Old myocardial infarction; I48.0 Paroxysmal atrial fibrillation; I48.92 Unspecified atrial flutter; E78.5 Hyperlipidemia, unspecified; Z95.5 Presence of coronary angioplasty implant and graft
CPT/HCPCS: 93798

== ENCOUNTER 2020-01-14 13:00 | Outpatient (RCR) | payer OTHER, SELFPAY ==
[2019-11-12 08:51] VITALS: BMI 22.7
[2019-12-10 07:14] VITALS: BMI 22.8
[2019-12-16 00:35] VITALS: BP 112/58; BP 160/80
--- NOTE | 2020-01-07 12:52 | CR.ITP_ITS ---
Exercise - 90-day Assessment - Visit Date of Eval: 01/07/20 Session #:: 31 - Physician Prescribed Exercise Modalities: Treadmill, Airdyne, NuStep Frequency: 3x/week for 12 weeks [36 sessions] Intensity: 60-80% of age predicted maximum heart rate reserve Current METSs:: 9.5 Target Heart Rate:: 98-128 Current RPE:: 14 Maximum Excercise HR:: 117 Resting Blood Pressure: 128/64 EKG Type: Sinus rhythmrare PVCs, slight upsloaping and ST depression no symptoms - Outcomes & Goals Goals:: Verbalizes understanding of THR, RPE & goal METS by session 6, Documents in home exercise log/reports 30 min aerobic 5 day/wk by DC, Demonstrates accurate pulse taking by DC - Intervention & Plan Exercise Program Goals: Instruct on personal THR & RPE, Instruct on MET level & personal MET goal, Show patient to take own pulse /validate performance until accurate, Instruct on home exercise - 30-day Reassessments 30 day Reassessments:: Met - Physical Activity Home Exercise Physical Activity - Home Exercise: Safe Exercise, Warm-up, Self-monitoring, Cool-Down, Home Exercise > 30 min Daily, Sitting Time <3 hours/daily - Outcomes & Goals Outcomes/Goals: Demonstrates correct Warm-up/exercise Cool-Down (S3) if = 2.5 METs, Verbalizes symptoms of exercise intolerance by Session 3 (S3), Demonstrate safe equipment use (S3) & follows exercise prescrition (6) - Intervention & Plan Plan/Intervention: Instruct warm-up & cool-down if exercising at > 2 METs, Instruct on symptoms of exercise intolerance & actions to take, Instruct & monitor on saf, Assess intial functional capacity & safety risk - 30-day Reassessments 30 day Reassessments:: Met Nutrition - 90-Day Assessment - Program Goals Nutrition Program Goals: LDL <100 optimal. 100 - 129 Near optimal. 130 - 159 Borderline High. 160 - 189 High. Total Cholesterol <200 desirable. 200 - 239 Borderline High. >/= 240 High. HDL < 40 Low >/=60 High. Triglycerides <150 desirable. <199 optimal. VlDL 5 - 40. HgbA1C <7%. BMI <25 Patient has diagnosis of Hyperlipidemia (ICD E78)?: Yes - Visit Date of Assessment:: 01/07/20 Session #:: 31 - Cholesterol/Lipids Determine presence & major risk factors that modify LDL goal: Hypertension or hypertensive medication, Age men > 45 years; women >/= 55 years Outcomes/Goals: Pt IDs own risk factors & lifestyle modifications by Session 10, Verbalizes symptoms of angina & response by session 3., Pt independently manages Intervention/Plan: Advocate for lipid panel cholesterol medication if applicable, Instruct on personal lipid levels & lipid goals/NCEP guidelines, Instruct on cholesterol 30-day Reassessments:: Progressing - Diabetes (Other Core Measures) Diabetes Type: Not Applicable - Weight Mgt (Other Care) Not Applicable: Yes Height: 5 ft 11 in Weight:: 167 lb BMI: 23.3 Diagnosis Overweight/Obesity BMI> 30% ICD-10 E66: No Diagnosis High BMI/Morbid Obesity BMI> 35% ICD-10 Z68: No Outcomes/Goals: Pt sets, maintains & shows weight loss goal & trend during rehab Intervention/Plan: Instruct on ideal BMI & set weight loss goal w/patient, Assist pt to ID & incorporate diet changes for weight loss by S9 30 day Reassessments:: Met - Healthy Eating Habits Will attend diet classes:: Yes Outcomes/Goals:: Consume diet rich in vegs,fruits,whole grain/high fiber,fish,lean meat, Limit sat/trans fats,cholesterol & added salts & sugars Intervention/Plan:: Assess current eating habits 30-day Reassessments:: Progressing - Education Gave educational materials for:: Healthy eating Medical- 90-Day Assessment - Visit Date of Eval: 01/07/20 Session #:: 31 - Medication Compliance Preventative Medication(s):: Aspirin, Ticagrelor/P2Y12 inhibitor, Statin/lipid, Beta shirin H/O mental health issues: depression, anxiety, or addiction?: No Doesn?t believe in the benefits of treatment?: No Believes medications are unnecessary or harmful?: No Has a concern about medication side effects?: No Expresses concern over the cost of medications?: No Outcomes/Goals: Verbalizes medications,desired effect & common side effects @ DC, Pt self-reports following medication regimen, Keeps card in wallet w/medications listed by DC Interventions/plans: Instruct on medication effects & side effects, Review medication list w/patient every two weeks, Instruct importance of taking meds as ordered & assist problem solving 30-day Reassessments:: Progressing - Tobacco Use Tobacco Use: Non-smoker - Hypertension Hypertension Diagnosis:: Hypertension ICD-10 I10 Resting Blood Pressure:: 128/64 [place] [employer] Hypertension Guidelines: [place] [employer] Hypertension Guidelines. Normal BP Less than 120/80. Elevated BP 120/80. Hypertension Stage 1: BP 130-139/80-89. Hypertesnion Stage 2: BP 140 or higher/90 or higher. Hypertension Crisis: BP higher than 180/120 Peak Exercise Blood Pressure:: 170/80 Outcomes/Goals: Able to verbalize/achieve optimal blood pressure <130/80, Incorporates diet changes & exercise for blood pressure control by DC Interventions/plan: Instruct on optimal blood pressure, hypertension & medications, Instruct on effects of sodium, alcohol, stress, exercise &hypertension 30 day Reassessments:: Met - Tobacco Cessation Referral Smoking Cessation Referral:: No Individual Education/Counseling:: No Education Schedule Given:: Yes Psychosocial - 90-Day Assess - VIsit Date of Eval: 01/07/20 Session #:: 31 Not Applicable: Yes - Target Goals Target Goals: Assess presence or absence of depression. Using a valid screening tool, maximizes coping skills. Positive support system - Psychosocial Test Tool Used:: PHQ-9 Questionnaire phq-9 Severity: Severity. 1-4 Minimal Depression. 5-9 Mild Depression. 10-14 Moderate Depression. 15-19 Moderately Sever Depression. 20-27 Severe Depression. Rule: - Referral to Behavioral Health PS - Interventions: Yes Attend Stress Management Classes, No Referral to Behavioral Health if PHQ-9 score >9:, No Referral to [facility], No Referral to Physician if PHQ-9 if score is 5-9: - Outcomes/Goals: See list Psychosocial Outcomes/Goals:: ID's personal stressors & 2 strategies to manage stress by discharge - Intervention/Plan: See List Interventions/Plan:: Assess stressors,coping strategies & signs of derpression on admission, Instruct patient to recognize signs & symptoms of depression, Instruct patient to recog - 30-day Reassessments: 30 day Reassessments:: Met Patient Health Questionnaire 90-Day Re-eval Assessment 1. Little interest or pleasure in doing things: Not at all 2. Feeling down, depressed, or hopeless: Not at all 3. Trouble falling or staying asleep, or sleeping too much: Not at all 4. Feeling tired or having little energy: Not at all 5. Poor appetite or overeating: Not at all 6. Feeling bad about yourself -- or that you are a failure or have let yourself or your family down: Not at all 7. Trouble concentrating on things, such as reading the newspaper or watching television: Not at all 8. Moving or speaking so slowly that other people could have noticed. Or the opposite - being so fidgety or restless that you have been moving around a lot more than usual: Not at all 9. Thoughts that you would be better off , or of hurting yourself in some way: Not at all Total Score: 0 Self-Efficacy 90-Day Re-eval Assessment We would like to know how confident you are in doing certain activities. Please select your confidence level for:: Select your confidence level for the following using the scale 1-10 where 1 is not at all confident and 10 is totally confident. Your score is the average of all 6 responses. Fatigue: How confident are you that you can keep the fatigue caused by your disease from interfering with the things you want to do? Select Number: 10 Physical Discomfort or Pain: How confident are you that you can keep the physical discomfort or pain of your disease from interfering with the things you want to do? Select Number: 10 Emotional Distress: How confident are you that you can keep the emotional distress caused by your disease from interfering with the things you want to do? Select Number: 10 Other Symptoms or Health Problems: How confident are you that you can keep other symptoms or health problems from interfering with the things you want to do? Select Number: 10 Different Tasks and Activities: How confident are you that you can do the different tasks and activities needed to manage your health condition so as to reduce your need to see a doctor? Select Number: 10 Medication: How confident are you that you can do things other than just taking medication to reduce how much your illness affects your everyday life? Select Number: 10 Total Score:: 10
[2020-01-07 12:59] VITALS: BP 128/64; BP 170/80; BMI 23.3
== END 2020-01-15 23:59 ==
LOC: CR 13:00
PROVIDERS: PCP Family Medicine; Referring Provider Internal Medicine Cardiovascular Disease; Visit Provider Internal Medicine Cardiovascular Disease
DX: I25.10 Atherosclerotic heart disease of native coronary artery without angina pectoris (principal); I25.2 Old myocardial infarction; I48.0 Paroxysmal atrial fibrillation; I48.92 Unspecified atrial flutter; E78.5 Hyperlipidemia, unspecified; Z95.5 Presence of coronary angioplasty implant and graft
CPT/HCPCS: 93798

== ENCOUNTER 2020-01-21 14:15 | Outpatient (RCR) | payer OTHER, SELFPAY ==
[2019-11-12 08:51] VITALS: BMI 22.7
[2020-01-07 12:59] VITALS: BMI 23.3
[2020-01-16 00:22] VITALS: BP 128/64; BP 170/80
== END 2020-02-14 23:59 ==
LOC: CR 14:15
PROVIDERS: PCP Family Medicine; Referring Provider Internal Medicine Cardiovascular Disease; Visit Provider Internal Medicine Cardiovascular Disease
DX: I25.10 Atherosclerotic heart disease of native coronary artery without angina pectoris (principal); I25.2 Old myocardial infarction; I48.0 Paroxysmal atrial fibrillation; I48.92 Unspecified atrial flutter; E78.5 Hyperlipidemia, unspecified; Z95.5 Presence of coronary angioplasty implant and graft
CPT/HCPCS: 93798

== ENCOUNTER → 2020-04-27 14:14 | Outpatient (CLI) | payer OTHER, SELFPAY ==
[2019-11-12 08:51] VITALS: BMI 22.7
[2020-01-07 12:59] VITALS: BMI 23.3
--- NOTE | 2020-04-27 | LES_PTH ---
PATIENT: DELFINA COOL LOC: [facility] U#:[id number] AGE/SX: 74/M ROOM: RE04/27/[address]: Dr. Dale Rivera MD : 1950 BED: DIS: SPEC #: [id number] RECD: 04/27/20 17:39 STATUS: MARY KIMBROUGH #: [id number] JESSICA: 04/27/20 00:[address]: Dale Rivera DEPT: SURGICAL PATHOLOGY RECD BY: Juarez Nieto Tissues: Skin of neck, NOS Procedures: Surgery Specimen Level IV HEADER OPERATION: Left neck shave PRE-OP DIAGNOSIS: Rule out SCC TISSUE SUBMITTED: Left neck shave MICROSCOPIC DIAGNOSIS Skin of left neck, shave biopsy: Basal cell carcinoma, superficial, multifocal with associated ulceration, incompletely excised. See comment. AM:cliff 05/01/2020 COMMENT The lesion extends to the deep margins of excision. Clinical correlation is suggested. MICROSCOPIC DESCRIPTION Slides are reviewed. GROSS DESCRIPTION Received in fixative is one container labeled with the patient's name and designated left neck. The specimen consists of a shave biopsy of farris-white skin measuring 1 x 0.4 x 0.1 cm. The specimen is inked and submitted entirely in one cassette. It will be sectioned at the time of embedding. / SJ:rg 04/28/20 TC:0 CPT: 71937
== END ==
PROVIDERS: PCP Family Medicine; Visit Provider Family Medicine
DX: C44.41 Basal cell carcinoma of skin of scalp and neck (principal)
CPT/HCPCS: 88305

== ENCOUNTER → 2020-12-13 13:35 | Outpatient (CLI) | payer OTHER, SELFPAY ==
[2020-01-07 12:59] VITALS: BMI 23.3
[2020-12-13 16:54] LABS: AST(SGOT) 25 U/L (15-37); Alanine Aminotransfer ALT/SGPT 42 U/L (16-61); Albumin, Serum 3.7 g/dL (3.2-5.0); Alkaline Phosphatase 72 U/L (45-117); Bilirubin, Direct 0.14 mg/dL (0.00-0.30); Cholesterol 116 mg/dL (200); Globulin 3.2 g/dL (2.2-4.2); High Density Lipoprotein 49 mg/dL; Protein, Total 6.9 g/dL (6.4-8.2); Triglycerides 104 mg/dL; Very Low Density Lipoprotein 21 mg/dL (5-40)
== END ==
PROVIDERS: PCP Family Medicine; Referring Provider Internal Medicine Cardiovascular Disease; Visit Provider Internal Medicine Cardiovascular Disease
DX: E78.00 Pure hypercholesterolemia, unspecified (principal)
CPT/HCPCS: 36415; 80061; 80076

== ENCOUNTER → 2021-10-29 | Outpatient (CLI) | payer OTHER, SELFPAY ==
[2020-01-07 12:59] VITALS: BMI 23.3
--- NOTE | 2021-10-29 15:34 | RAD_ITS ---
EXAM: XR SINUSES/PARANASAL COMPLETE, 3 OR MORE VIEWS CLINICAL INDICATION: EUSTACHIAN TUBE DYSFUNCTION TECHNIQUE: Frontal, lateral and Melgar views of the sinuses and paranasal structures. This report was created using NPC III report Prize[employer] technology. COMPARISON: None. FINDINGS: BONES/JOINTS: Unremarkable. The regional bones are grossly intact. SINUSES: Unremarkable. No significant mucosal thickening. There are no air-fluid levels. RAD/Sinuses min 3 Views IMPRESSION: Negative sinus series. Electronically Signed: Zaki Livingston MD at 16:07 EDT ,
== END | disposition home or self-care (01) ==
PROVIDERS: PCP Family Medicine; Referring Provider Family Medicine; Visit Provider Family Medicine
DX: H69.90 Unspecified Eustachian tube disorder, unspecified ear (principal)
CPT/HCPCS: 70220

== ENCOUNTER → 2021-12-18 | Outpatient (CLI) | payer OTHER, SELFPAY ==
[2020-01-07 12:59] VITALS: BMI 23.3
[2021-12-18 12:38] LABS: AST(SGOT) 27 U/L (15-37); Alanine Aminotransfer ALT/SGPT 38 U/L (16-61); Albumin, Serum 3.9 g/dL (3.2-5.0); Alkaline Phosphatase 60 U/L (45-117); Bilirubin, Direct 0.18 mg/dL (0.00-0.30); Cholesterol 137 mg/dL (200); Globulin 3.1 g/dL (2.2-4.2); High Density Lipoprotein 54 mg/dL; Triglycerides 69 mg/dL; Very Low Density Lipoprotein 14 mg/dL (5-40)
== END | disposition home or self-care (01) ==
LOC: LAB 11:24
PROVIDERS: PCP Family Medicine; Visit Provider Internal Medicine Cardiovascular Disease
DX: E78.00 Pure hypercholesterolemia, unspecified (principal)
CPT/HCPCS: 36415; 80061; 80076

== ENCOUNTER → 2022-01-14 | Outpatient (CLI) | payer OTHER, SELFPAY ==
[2020-01-07 12:59] VITALS: BMI 23.3
--- NOTE | 2022-01-14 06:26 | ECHOD_ITS ---
Reason For Study: CAD/ASHD Procedure This was a 2D Doppler, Color Flow transthoracic echocardiogram. Exam performed in department. Left Ventricle Normal LV size. The estimated ejection fraction is 45 %. Moderate segmental systolic dysfunction (see wall motion). Stage 2 diastolic dysfunction. [place] : Hypokinetic. Mid-Anterior : Hypokinetic. Mid-anteroseptal : Hypokinetic. Inferior [place] : Hypokinetic. Right Ventricle Normal RV size. Normal systolic function. Atria Normal left atrium. Normal right atrium. Mitral Valve Normal mitral valve. Tricuspid Valve Normal tricuspid valve. Aortic Valve Trisinus/trileaflet aortic valve. Pulmonic Valve Normal pulmonic valve. Great Vessels Normal aortic root. The pulmonary artery is normal size. Inferior vena cava collapse with respiration. Pericardium/Pleural No pericardial effusion. MMode/2D Measurements & Calculations LVIDd: 5.4 cm IVSd: 0.35 cm Ao root diam: 3.0 cm LVIDs: 3.5 cm LVPWd: 1.4 cm FS: 34.6 % LAV(MOD-bp): 49.6 ml LVAd ap4: 30.5 cm2 SV(MOD-sp4): 56.6 ml LAV(MOD-bp) Indexed: 24.7 ml/m2 LVLd ap4: 7.8 cm LAV(MOD-sp2): 49.9 ml EDV(MOD-sp4): 97.9 ml LAV(MOD-sp4): 45.6 ml EDV(sp4-el): 100.7 ml LVAs ap4: 17.8 cm2 LVLs ap4: 6.3 cm ESV(MOD-sp4): 41.3 ml ESV(sp4-el): 42.9 ml EF(MOD-sp4): 57.8 % EF(sp4-el): 57.4 % SV(sp4-el): 57.8 ml LA A4 area: 16.9 cm2 LA dimension(2D): 3.4 cm RA A4 area: 17.8 cm2 Time Measurements MV dec time: 0.19 sec Doppler Measurements & Calculations MV E max jarrod: 67.8 cm/sec Lat Peak E' Jarrod: 5.7 cm/sec Med Peak E' Jarrod: 5.6 cm/sec MV A max jarrod: 63.1 cm/sec E/E' lat: 11.8 E/E' med: 12.0 MV E/A: 1.1 MV V2 max: 79.2 cm/sec Ao V2 max: 84.4 cm/sec MV max P.5 mmHg MV dec slope: 357.3 cm/sec2 Ao max P.9 mmHg MV V2 mean: 49.9 cm/sec Ao V2 mean: 58.9 cm/sec MV mean P.1 mmHg Ao mean P.6 mmHg MV V2 VTI: 26.7 cm Ao V2 VTI: 20.7 cm LV V1 max: 75.8 cm/sec PA V2 max: 102.8 cm/sec PI end-d jarrod: 103.6 cm/sec LV V1 max P.3 mmHg PA V2 mean: 74.6 cm/sec LV V1 mean P.2 mmHg LV V1 mean: 50.5 cm/sec LV V1 VTI: 17.9 cm ECHO/Echo Complete Interpretation Summary Normal LV size. The estimated ejection fraction is 45 %. Moderate segmental systolic dysfunction (see wall motion). Stage 2 diastolic dysfunction. Structurally normal valves. Ordering Physician: Tiburcio Suarez Referring Physician: Tiburcio Suarez Performed By: Tessie Crowley RCS
--- NOTE | 2022-01-14 10:12 | STRESSREP_ITS ---
Stress Test Report Exercise myocardial perfusion stress test. 71-year-old man with a history of previous myocardial infarction. Stress protocol: Resting EKG demonstrates normal sinus rhythm with a rate of 61 bpm normal intervals are noted resting blood pressure is 126/78 mmHg. Poor R wave progression is noted. The patient exercised according to the regular Isaiah protocol for a total duration of 10 minutes and 5 seconds. Patient completed 5 seconds into stage IV of the Isaiah protocol. The maximum heart rate attained was 150 bpm which was 100% of max impacted heart rate the maximum workload was 13.7 metabolic equivalents. At rest there were no ST or T wave changes noted to suggest ischemia and at peak exercise upsloping ST changes were noted which did not meet the criteria for ischemia. No clinical angina was noted the test was terminated due to mild shortness of breath. The peak blood pressure was noted to be 146/70 mmHg. Rate-pressure product was 19,564. Myocardial perfusion protocol. 11.8 mCi of technetium 99m sestamibi was injected at rest. The patient exercised according to the regular Isaiah protocol for 10 minutes and at peak exe rcise 33.6 mCi of technetium 99m sestamibi was injected stress images were obtained stress and rest imaging were reconstructed and compared in the short axis vertical long and horizontal long axis. Gated images were also obtained. Perfusion SPECT analysis: Review of the stress images demonstrate normal uptake of tracer noted in all areas of the myocardium except for the apex. The rest of the kingsley have normal perfusion. The resting images demonstrate a similar patent except for the apex. The above is suggestive of a previous anterior apical infarct. Gated SPECT analysis: The gated ejection fraction is 42%. Conclusion: Normal exercise myocardial perfusion stress test with no evidence of ischemia at a high workload. Previous anterior apical infarct noted with no ischemia noted. Mildly to moderately reduced left ventricular ejection fraction.
== END | disposition home or self-care (01) ==
PROVIDERS: PCP Family Medicine; Referring Provider Internal Medicine Cardiovascular Disease; Visit Provider Internal Medicine Cardiovascular Disease
DX: E78.5 Hyperlipidemia, unspecified (principal); Z95.5 Presence of coronary angioplasty implant and graft; I25.10 Atherosclerotic heart disease of native coronary artery without angina pectoris; I25.2 Old myocardial infarction
CPT/HCPCS: 78452; 93017; 93306; A9500; A4216

== ENCOUNTER → 2022-04-08 | Outpatient (CLI) | payer OTHER, SELFPAY ==
[2020-01-07 12:59] VITALS: BMI 23.3
--- NOTE | 2022-04-08 08:04 | CT_ITS ---
STUDY: CT MAXILLOFACIAL SINUSES REASON FOR EXAM: Male, 71 years old. Right frontal and maxillary pain/pressure. RADIATION DOSAGE (If Supplied By Facility): CTDIvol = ( 33.06 ) mGy, DLP = ( 821.45 ) mGycm TECHNIQUE: The patient was scanned in a multi detector CT scanner. High resolution axial imaging was performed without the administration of intravenous contrast material. Sagittal and coronal images were reconstructed. Individualized dose optimization techniques were used for this CT. COMPARISON: Comparison is made with prior radiographs of the sinuses dated 10/29/2021. FINDINGS: FRONTAL SINUSES: Normal aeration, without mucosal inflammatory disease. ETHMOIDAL SINUSES: Mild degree of mucosal thickening of the ethmoid sinuses slightly more prominent on the right side. MAXILLARY SINUSES: Normal aeration, without mucosal inflammatory disease. SPHENOIDAL SINUSES: Minimal mucosal thickening of the right sphenoid sinus. There is patency of the bilateral maxillary infundibuli with normal uncinate processes, ethmoid bullae, and hiatus semilunaris. Normal bilateral middle turbinates. Normal bilateral inferior turbinates. Normal midline nasal septum. There is patency of the bilateral nasal airways. The visualized osseous structures are normal. The visualized bilateral orbital contents are normal. CT/Sinus/Facial Bone IMPRESSION: Mild degree of mucosal thickening of the ethmoid sinuses more prominent on the right side. Minimal degree of mucosal thickening of the right sphenoid sinus. Electronically Signed: Ever Ervin MD at 9:40 EST ,
== END | disposition home or self-care (01) ==
PROVIDERS: PCP Family Medicine; Referring Provider Otolaryngology Otolaryngology/Facial Plastic Surgery; Visit Provider Otolaryngology Otolaryngology/Facial Plastic Surgery
DX: R51.9 Headache, unspecified (principal); J32.8 Other chronic sinusitis
CPT/HCPCS: 70486

== ENCOUNTER → 2022-05-03 | Outpatient (CLI) | payer OTHER, SELFPAY ==
[2020-01-07 12:59] VITALS: BMI 23.3
[2022-05-03 15:14] LABS: Absolute Lymphocyte Count 1.79 X10^3/uL (0.83-4.51); Absolute Neutrophil Count 2.3 X10^3/uL (2.0-7.7); Basophil# 0.05 X10^3/uL; Eosinophil# 0.16 X10^3/uL; Eosinophils% 3.3 % (0-5); Hematocrit 45.9 % (40-54); Lymphocyte # 1.79 X10^3/ul (0.83-4.51); Lymphocyte % 37.1 % (19-41); Mean Corp Hgb Conc 32.7 g/dL (32-36); Mean Corpuscular Hgb 31.3 pg (27.0-32.0); Mean Corpuscular Volume 95.8 fL (80-94); Mean Platelet Vol. 10.3 fl (6.2-12.0); Monocyte# 0.55 X10^3/uL; Monocyte% 11.4 % (0-10); NRBC Flagged by Analyzer 0 % (0-5); Neutrophil # 2.26 X10^3/uL (2.7-7.7); Platelet Count 185 K/mm3 (150-450); RBC Distribution Width CV 12.6 % (11.6-14.6); RBC Distribution Width SD 45.1 fl (35.1-43.9); Red Blood Count 4.79 M/mm3 (4.6-6.2); White Blood Count 4.8 K/mm3 (4.4-11.0)
[2022-05-03 15:52] LABS: Hemoglobin A1c 6.1 % (3.8-5.6)
[2022-05-03 16:12] LABS: ALB/GLOB Ratio 1.2 RATIO (0.9-2.4); AST(SGOT) 31 U/L (15-37); Alanine Aminotransfer ALT/SGPT 37 U/L (16-61); Albumin, Serum 3.8 g/dL (3.2-5.0); Alkaline Phosphatase 69 U/L (45-117); Anion Gap 6 (5-15); BUN 21 mg/dL (7-18); BUN/Creat Ratio 21.6 RATIO (10-20); Calcium,Total 8.8 mg/dL (8.5-10.1); Chloride 105 mmol/L (98-107); Cholesterol 116 mg/dL (200); Creatinine, Serum 0.97 mg/dL (0.70-1.30); EST Glomerular Filtration Rate 81 mL/min (>60); Est Glom Filt Rate - Afr Amer 98 mL/min (>60); Globulin 3.2 g/dL (2.2-4.2); Glucose 82 mg/dL (74-106); High Density Lipoprotein 46 mg/dL; Sodium Level 141 mmol/L (136-145); Triglycerides 101 mg/dL; Very Low Density Lipoprotein 20 mg/dL (5-40)
== END | disposition home or self-care (01) ==
LOC: MFPLAB 13:49
PROVIDERS: PCP Family Medicine; Referring Provider Family Medicine; Visit Provider Family Medicine
DX: E78.00 Pure hypercholesterolemia, unspecified (principal); R73.01 Impaired fasting glucose; Z13.29 Encounter for screening for other suspected endocrine disorder; Z12.5 Encounter for screening for malignant neoplasm of prostate
CPT/HCPCS: 36415; 80053; 80061; 83036; 84153; 84443; 85025; G0103

== ENCOUNTER → 2024-03-23 | Outpatient (CLI) | payer OTHER, SELFPAY ==
[2020-01-07 12:59] VITALS: BMI 23.3
--- NOTE | 2024-03-23 06:23 | ECHOCS_ITS ---
Reason For Study: CORONARY ARTERY DISEASE Procedure This was a 2D Doppler, Color Flow transthoracic echocardiogram. The study was technically difficult. Contrast injection was performed. Exam performed in department. Left Ventricle Normal left ventricle. The estimated ejection fraction is 42 %. Moderate segmental systolic dysfunction (see wall motion). Septal [place] : Akinetic. Lateral [place] : Hypokinetic. Mid- anteroseptal : Akinetic. Mid-Anterior : Hypokinetic. Inferior [place] : Hypokinetic. The rest of the wall segments are normal. Right Ventricle Normal RV size. Normal systolic function. Atria Normal left atrium. Normal right atrium. Mitral Valve Normal mitral valve. Tricuspid Valve Normal tricuspid valve. Mild (1+) tricuspid valve insufficiency. Pulmonary artery systolic pressure is 26 mmHg. Aortic Valve Trisinus/trileaflet aortic valve. Mild (1+) aortic valve insufficiency. Pulmonic Valve Normal pulmonic valve. Great Vessels Normal aortic root. The pulmonary artery is normal size. Inferior vena cava collapse with respiration. Pericardium/Pleural No pericardial effusion. Medication 22 gauge I.V. with prn adaptor inserted into right arm. Diluted definity 4.5ml given slow IV push to enhance endocardial definition. MMode/2D Measurements & Calculations LVIDd: 4.1 cm IVSd: 1.3 cm LVOT diam: 2.0 cm LVIDs: 3.0 cm LVPWd: 0.99 cm RVDd: 3.7 cm FS: 26.9 % LVOT area: 3.2 cm2 asc Aorta Diam: 3.4 cm LAV(MOD-bp): 40.3 ml LVAd ap4: 40.1 cm2 LAV(MOD-bp) Indexed: 20.0 ml/m2 LVLd ap4: 9.3 cm LAV(MOD-sp2): 39.7 ml EDV(MOD-sp4): 142.6 ml LAV(MOD-sp4): 38.9 ml EDV(sp4-el): 147.5 ml LVAs ap4: 28.6 cm2 LVLs ap4: 8.0 cm ESV(MOD-sp4): 85.1 ml ESV(sp4-el): 86.5 ml EF(MOD-sp4): 40.3 % EF(sp4-el): 41.3 % LVAd ap2: 39.6 cm2 SV(MOD-sp4): 57.4 ml SV(MOD-sp2): 61.7 ml LVLd ap2: 8.9 cm SI(MOD-sp4): 28.5 ml/m2 SI(MOD-sp2): 30.6 ml/m2 EDV(MOD-sp2): 139.8 ml EDV(sp2-el): 148.6 ml LVAs ap2: 29.5 cm2 LVLs ap2: 8.8 cm ESV(MOD-sp2): 78.0 ml ESV(sp2-el): 83.7 ml EF(MOD-sp2): 44.2 % SV(sp4-el): 61.0 ml Ao sinus diam: 3.[address] Junction: 2.9 cm LA dimension(2D): 3.5 cm LA A4 area: 14.6 cm2 RA A4 area: 13.7 cm2 TAPSE: 2.2 cm Time Measurements MV dec time: 0.26 sec Doppler Measurements & Calculations MV E max jarrod: 56.8 cm/sec Lat Peak E' Jarrod: 5.2 cm/sec Med Peak E' Jarrod: 5.4 cm/sec MV A max jarrod: 82.6 cm/sec E/E' lat: 11.0 E/E' med: 10.5 MV E/A: 0.69 MV dec slope: 216.7 cm/sec2 Ao V2 max: 77.3 cm/sec LV V1 max: 65.8 cm/sec Ao max P.4 mmHg LV V1 max P.7 mmHg Ao V2 mean: 55.7 cm/sec LV V1 mean P.93 mmHg Ao mean P.3 mmHg LV V1 mean: 44.5 cm/sec Ao V2 VTI: 18.1 cm LV V1 VTI: 16.6 cm AV (velocity ratio): 0.92 YOSI(I,D): 2.9 cm2 YOSI(V,D): 2.7 cm2 SV(LVOT): 53.0 ml PA V2 max: 79.2 cm/sec TR max jarrod: 237.9 cm/sec TR max P.6 mmHg ECHO/Echo Complete W/ Contrast Interpretation Summary Normal left ventricle. The estimated ejection fraction is 42 %. Moderate segmental systolic dysfunction (see wall motion). Pulmonary artery systolic pressure is 26 mmHg. Contrast injection was performed. Ordering Physician: Tiburcio Suarez Referring Physician: Dale Rivera MD Performed By: Ml Loyola RDCS
--- NOTE | 2024-03-23 17:18 | STRESSREP_ITS ---
Stress Test Report Exercise myocardial perfusion stress test. 73-year-old man with a history of previous coronary artery disease Stress protocol: Resting EKG demonstrates sinus bradycardia with a rate of 48 bpm resting blood pressure is 128/72 mmHg. previous anteroseptal infarct. The patient exercised according to the regular Isaiah protocol for a total duration of 9 minutes attaining a maximum heart rate of 139 bpm which was 94% of maximum predicted heart rate; the maximum workload was 10.1 metabolic equivalents. At rest there were no ST or T wave changes noted to suggest ischemia and at peak exercise upsloping ST changes only were noted which did not meet the criteria for ischemia. No clinical angina was noted the test was terminated due to the ta rget heart rate being achieved/fatigue. The peak blood pressure was 160/64 mmHg. Rate-pressure product was 16,600. Myocardial perfusion protocol. 10.0 mCi of technetium 99m sestamibi was injected at rest. The patient exercised according to regular Isaiah protocol for total duration of 9 minutes and at peak exercise 32.9 mCi of technetium 99m sestamibi was injected stress images were obtained stress and rest images were reconstructed in comparing the short axis vertical long and horizontal long axis. Gated images were also obtained. Perfusion SPECT analysis: Review of the stress images demonstrate normal uptake of tracer noted in all areas of the myocardium except for the mid anteroseptal wall extending to the apex with a medium size perfusion defect. The resting images demonstrate a similar pattern with mild improvement around the edges of the above-mentioned areas the rest of the kingsley appear to be normal. The above is suggestive of a previous anteroseptal infarct and apical infarct with brandi-infarct ischemia only. Gated SPECT analysis: The gated ejection fraction is 49%. Conclusion: Normal exercise myocardial perfusion stress test at a high workload Mildly reduced ejection fraction. Previous anteroseptal and apical infarct with minimal to mild brandi-infarct ischemia
== END | disposition home or self-care (01) ==
PROVIDERS: PCP Family Medicine; Referring Provider Internal Medicine Cardiovascular Disease; Visit Provider Internal Medicine Cardiovascular Disease
DX: Z95.5 Presence of coronary angioplasty implant and graft (principal); I25.10 Atherosclerotic heart disease of native coronary artery without angina pectoris
CPT/HCPCS: 78452; 93017; 93306; A9500; A4216; C8929

== ENCOUNTER → 2024-06-02 | Outpatient (CLI) | payer MEDICARE, OTHER, SELFPAY ==
[2020-01-07 12:59] VITALS: BMI 23.3
[2024-06-02 10:21] LABS: Absolute Lymphocyte Count 1.62 X10^3/uL (0.83-4.51); Absolute Neutrophil Count 2.1 X10^3/uL (2.0-7.7); Basophil# 0.03 X10^3/uL; Basophil% 0.7 % (0-1); Eosinophil# 0.06 X10^3/uL; Eosinophils% 1.4 % (0-5); Hematocrit 45.8 % (40-54); Hemoglobin 15.3 g/dL (13.0-16.5); Lymphocyte # 1.62 X10^3/ul (0.83-4.51); Lymphocyte % 38.5 % (19-41); Mean Corp Hgb Conc 33.4 g/dL (32-36); Mean Corpuscular Hgb 31.2 pg (27.0-32.0); Mean Corpuscular Volume 93.3 fL (80-94); Mean Platelet Vol. 10.2 fl (6.2-12.0); Monocyte# 0.44 X10^3/uL; Monocyte% 10.5 % (0-10); NRBC Flagged by Analyzer 0 % (0-5); Neutrophil # 2.05 X10^3/uL (2.7-7.7); Neutrophil % 48.7 % (47-70); Platelet Count 193 K/mm3 (150-450); RBC Distribution Width CV 12.9 % (11.6-14.6); RBC Distribution Width SD 44.4 fl (35.1-43.9); Red Blood Count 4.91 M/mm3 (4.6-6.2); White Blood Count 4.2 K/mm3 (4.4-11.0)
[2024-06-02 11:54] LABS: ALB/GLOB Ratio 1.7 RATIO (0.9-2.4); AST(SGOT) 27 U/L (<=37); Alanine Aminotransfer ALT/SGPT 25 U/L (<=46); Albumin, Serum 4.3 g/dL (3.4-4.8); Alkaline Phosphatase 65 U/L (40-129); Anion Gap 11 (5-15); BUN 26 mg/dL (4-19); BUN/Creat Ratio 27.1 RATIO (10-20); Carbon Dioxide 25.2 mmol/L (21.0-32.0); Chloride 102 mmol/L (98-108); Cholesterol 125 mg/dL (<=200); Creatinine, Serum 0.96 mg/dL (0.70-1.20); EST Glomerular Filtration Rate 84 (>60); Globulin 2.5 g/dL (2.2-4.2); Glucose 94 mg/dL (70-99); High Density Lipoprotein 46 mg/dL; Low Density Lipoprotein Calc. 68 mg/dL; PSA,Total - Annual Screen 0.18 ng/mL (0.02-4.00); Potassium 4.3 mmol/L (3.3-5.1); Protein, Total 6.8 g/dL (5.9-8.4); Sodium Level 138 mmol/L (133-145); Triglycerides 58 mg/dL; Very Low Density Lipoprotein 12 mg/dL (5-40); cholesterol:hdl ratio screen 2.74
== END | disposition home or self-care (01) ==
LOC: MFPLAB 08:25
PROVIDERS: PCP Family Medicine; Referring Provider Family Medicine; Visit Provider Family Medicine
DX: Z00.00 Encounter for general adult medical examination without abnormal findings (principal); Z12.5 Encounter for screening for malignant neoplasm of prostate
CPT/HCPCS: 36415; 80053; 80061; 84153; 85025; G0103